=== PATIENT | female | born 1985 | race Caucasian/White ===

== ENCOUNTER 2019-01-18 17:52 | Emergency (ER) | payer OTHER ==
[~2019-01-18] VITALS: Ht 162.6 cm; Wt 99.8 kg
[2019-01-18] MEDS ORDERED: KETOROLAC 60 MG/2 ML VIAL IM STA (18:34)
[2019-01-18] MEDS ORDERED: IBUP-1780 PO (18:40)
[2019-01-18] MEDS ORDERED: ACHD5005 PO (18:40)
[2019-01-18] MEDS ORDERED: CLIN300C11 PO (18:40)
--- NOTE | 2019-01-18 18:40 | ED EENT ---
History of Present Illness General Chief Complaint: Dental Problems/Pain Stated Complaint: JAW PAIN Nursing Triage Note: PT HAD A TOOTH PULLED 3 DAYS AGO AND STARTED ON CLINDAMYCIN. SINCE THEN HAS DEVELOPED A KNOT WITH PRESSURE AND JAW PAIN AROUND THE EXTRACTION SITE. SHE REPORTS TAKING 800 MG OF IBUPROFEN AT 1200 AND 500 MG OF TYLENOL AT NOON A WELL. Source: patient History of Present Illness Date Seen by Provider: Jan 18, 2019 Time Seen by Provider: 18:16 Initial Comments 33-year-old female presenting with complaints of pain and swelling to her right upper mouth and face since having tooth pulled on Friday. She states that she has been taking clindamycin since the tooth was pulled but it was abscess was pulled. She is concerned that she may need more antibiotics or something more for pain. She has slept all day today other than when she got up to take a dose of ibuprofen and Tylenol for pain. She feels that the pain is not improving. She was complaining of draining from the abscessed area of the tooth. She also felt like she was still having some swelling to her face. She states that she has had a temp around 101 Fahrenheit at home. She is afebrile here. 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 Allergies and Home Medications Allergies Coded Allergies: penicillin G (Verified Allergy, Mild, Rash, 01/18/19) cefaclor (Verified Allergy, Unknown, 01/18/19) Home Medications Clindamycin HCl 300 Mg Capsule, 300 MG PO TID Prescribed by: HUAN MARQUES on 01/18/191839 Hydrocodone Bit/Acetaminophen 1 Tab Tab, 1 EACH PO Q6H PRN for PAIN-MODERATE Prescribed by: HUAN MARQUES on 01/18/191839 Ibuprofen 800 Mg Tablet, 800 MG PO Q8H PRN for PAIN Prescribed by: HUAN MARQUES on 01/18/191839 Patient Home Medication List Home Medication List Reviewed: Yes Review of Systems Review of Systems Constitutional: chills, fever (up to 101 F at home), malaise Eyes: Denies Blurred Vision, Denies Photophobia Ears: No Symptoms Reported Nose: no symptoms reported Mouth: see HPI Throat: no symptoms reported Respiratory: no symptoms reported Cardiovascular: no symptoms reported Gastrointestinal: no symptoms reported Musculoskeletal: no symptoms reported Skin: no symptoms reported Neurological: No Symptoms Reported Hematologic/Lymphatic: No Symptoms Reported Past Izqsbdf-Nmvinm-Vxgtwx Hx Past Med/Social Hx: Reviewed Nursing Past Med/Soc Hx Patient Social History Alcohol Use: Denies Use Recreational Drug Use: No Smoking Status: Never a Smoker 2nd Hand Smoke Exposure: No Recent Foreign Travel: No Contact w/Someone Who Travel: No Recent Infectious Disease Expo: No Recent Hopitalizations: No Physical Abuse: No Sexual Abuse: No Mistreated: No Fear: No Seasonal Allergies Seasonal Allergies: No Past Medical History Surgeries: Yes (WISDOM TEETH, BACK SURGERY X 3, LEFT FOOT, 1 VAG ) Respiratory: Yes Asthma Cardiac: No Neurological: No : No Genitourinary: No Gastrointestinal: No Musculoskeletal: No Endocrine: No HEENT: No Cancer: No Psychosocial: Yes Anxiety Integumentary: No Physical Exam Vital Signs Vital Signs - First Documented 01/18/19 17:58 Temp 98.1 Pulse 79 Resp 20 B/P (MAP) 131/81 (98) O2 Delivery Room Air Height, Weight, BMI Height: 5'4.00" Weight: 220lbs. oz. 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 After that have her take a few hydrocodone for severe pain. Make sure that she is taking 300 mg 3 times a day of the clindamycin to treat for infection. If she is not improving by Friday and return or seek medical care for further evaluation. Departure Impression Primary Impression: Pain, dental Additional Impression: Dental abscess Disposition: HOME, SELF-CARE Condition: Stable Departure-Patient Inst. Decision time for Depature: 18:36 Referrals: NO,LOCAL PHYSICIAN (PCP) Primary Care Physician Patient Instructions: Tooth Decay, Adult (DC), Dental Pain (DC), Tooth Abscess (DC) Add. Discharge Instructions: Make sure you are taking Clindamycin 300 mg 3 times a day for the infection. Use Ibuprofen 800 mg every 8 hours for pain and inflammation. Take with food to limit irritation to stomach For severe pain use Hydrocodone. If your symptoms are not improving by Friday then you may need IV antibiotics so you should get checked again if not improving by Friday. Elevate your head when sleeping to help with swelling and pain All discharge instructions reviewed with patient and/or family. Voiced understa nding. Scripts Clindamycin HCl (Clindamycin HCl) 300 Mg Capsule 300 MG PO TID for 10 Days, #30 CAP 0 Refills Prov: HUAN MARQUES MD 01/18/19 Ibuprofen (Ibuprofen) 800 Mg Tablet 800 MG PO Q8H PRN for PAIN, #30 TAB 0 Refills Prov: HUAN MARQUES MD 01/18/19 Hydrocodone Bit/Acetaminophen (Hydrocodone/Acetaminophen 5/325mg Tablet) 1 Tab Tab 1 EACH PO Q6H PRN for PAIN-MODERATE MDD 10 for 3 Days, #12 TAB 0 Refills Prov: HUAN MARQUES MD 01/18/19 HUAN MARQUES MD Jan 18, 2019 18:40
[2019-01-18 18:42] VITALS: BP 131/81
== END 2019-01-18 18:43 | disposition home or self-care (01) ==
LOC: EDUNIT# 17:52 → ER FS 17:53
DX: K04.7 Periapical abscess without sinus (principal); J45.909 Unspecified asthma, uncomplicated; F41.9 Anxiety disorder, unspecified; Z88.0 Allergy status to penicillin; Z88.1 Allergy status to other antibiotic agents
CPT/HCPCS: 99284

== ENCOUNTER → 2020-02-10 | Outpatient (CLI) | payer MEDICARE, MEDICAID ==
[~2020-02-10] MED LIST: ACHD5005 PO; CLIN300C11 PO; IBUP-1780 PO
--- NOTE | 2020-02-10 14:52 | Diagnostic Imaging Report ---
PROCEDURE: MRI lumbar spine. TECHNIQUE: Multiplanar, multisequence MRI of the lumbar spine was performed without contrast. INDICATION: Chronic low back pain with multiple prior lumbar spine surgeries. COMPARISON: No prior studies are available for comparison. FINDINGS: Curvature and alignment of the lumbar spine is normal. There are postop changes of posterior instrumented fusion with vertical stabilization rods and pedicle screws transfixing the L5-S1 level. This does create moderate artifact. Vertebral body heights are maintained. Marrow signal intensity is unremarkable. No geographic marrow lesion or compression fracture is identified. There is disc desiccation at the L5-S1 level as well. The conus is unremarkable at the L1 level. T12-L1: The central canal and neural foramina are widely patent. L1-L2: The central canal and neural foramina are widely patent. L2-L3: Hypertrophic facet changes and ligamentous thickening is noted. Central canal remains patent. Neural foramina are widely patent. L3-L4: Hypertrophic facet changes and ligamentous thickening is noted. Slight trefoil configuration of the thecal sac is noted, but central canal remains patent. Neural foramina are patent. L4-L5: Hypertrophic facet changes and ligamentous thickening is noted. There is mild trefoil narrowing of the canal. Broad-based disc/osteophyte complex flattens the ventral thecal sac. This also results in moderate lateral recess narrowing. There is also eabk-sw-rqfvvwug left and mild right neuroforaminal narrowing. L5-S1: Postsurgical changes are noted. Central canal remains widely patent. The right-sided neural foramen is widely patent. There is some minimal narrowing of the left-sided neural foramen. Possibility of narrowing by epidural fibrotic tissue cannot be entirely excluded. There are no fluid collections detected. Paraspinous tissues are unremarkable. IMPRESSION: Postsurgical changes of posterior instrumented fusion at L5-S1. There may be some mild epidural fibrotic tissue mildly narrowing the left neural foramen at this level. There is also generalized lumbar facet arthropathy and degenerative changes described level by level above. Dictated by: Dictated on workstation # [id number]
== END ==
LOC: RAD 13:15
PROVIDERS: ATTEND Emergency Medicine
DX: M48.07 Spinal stenosis, lumbosacral region (principal); M47.816 Spondylosis without myelopathy or radiculopathy, lumbar region; M51.37 Other intervertebral disc degeneration, lumbosacral region; N39.42 Incontinence without sensory awareness; Z98.1 Arthrodesis status
CPT/HCPCS: 72148

== ENCOUNTER 2020-05-01 17:27 | Emergency (ER) | payer MEDICARE, MEDICAID ==
[~2020-05-01] VITALS: Ht 162 cm; Wt 105.0 kg
[~2020-05-01 17:27] MED LIST changes: -CLIN300C11 PO; +CLIN300C12 PO
[2020-05-01 17:30] VITALS: BP 127/90
--- NOTE | 2020-05-01 18:12 | ED General ---
General Chief Complaint: Back Problems Stated Complaint: BACK PAIN Nursing Triage Note: CHRONIC BACK PAIN. REPORTS HURTS MORE SO THE LAST 2 DAYS. HX OF MULTIPLE BACK SX AND IS ON SUBOXONE. PT ALSO REPORTS HER HANDS HURT BILATERALLY. Nursing Sepsis Screen: No Definite Risk Exam Limitations: No Limitations History of Present Illness Date Seen by Provider: May 01, 2020 Time Seen by Provider: 17:30 Initial Comments Patient is a 34-year-old female is here chronic back pain and neuropathy of upper extremities see presents with poorly controlled back pain and worsening her the of hands. She reports tingling and pain in her hands which is worse with repetitive arm use and use. Patient has been evaluated by her PCP for this and is currently on Suboxone. She has an appointment with a neurosurgeon in 2 months. She states her pain is poorly controlled. Her mother contacted EMS prior to notifying her PCP. Denies neck pain, no chest pain palpitations. No shortness of breath. No other acute symptoms or complaints. Timing/Duration: 1-3 Hours Severity: Moderate Allergies and Home Medications Allergies Coded Allergies: penicillin G (Verified Allergy, Mild, Rash, 01/18/19) cefaclor (Verified Allergy, Unknown, 01/18/19) Home Medications Clindamycin HCl 300 Mg Capsule, 300 MG PO TID Prescribed by: HUAN MARQUES on 01/18/191839 Hydrocodone Bit/Acetaminophen 1 Tab Tab, 1 EACH PO Q6H PRN for PAIN-MODERATE Prescribed by: HUAN MARQUES on 01/18/191839 Ibuprofen 800 Mg Tablet, 800 MG PO Q8H PRN for PAIN Prescribed by: HUAN MARQUES on 01/18/191839 Patient Home Medication List Home Medication List Reviewed: Yes Review of Systems Review of Systems Constitutional: see HPI EENTM: see HPI Respiratory: see HPI Cardiovascular: see HPI Genitourinary: see HPI Musculoskeletal: see HPI Skin: see HPI Psychiatric/Neurological: See HPI Hematologic/Lymphatic: See HPI Immunological/Allergic: see HPI All Other Systems Reviewed Negative Unless Noted: Yes Past Uvhlbbv-Tqyfnd-Nckqhe Hx Past Med/Social Hx: Reviewed Nursing Past Med/Soc Hx Patient Social History Alcohol Use: Denies Use Recreational Drug Use: No (PT IS ON SUBOXONE) Smoking Status: Never a Smoker 2nd Hand Smoke Exposure: No Recent Foreign Travel: No Contact w/Someone Who Travel: No Recent Infectious Disease Expo: No Recent Hopitalizations: No Physical Abuse: No Sexual Abuse: No Mistreated: No Fear: No Seasonal Allergies Seasonal Allergies: No Past Medical History Surgeries: Yes (WISDOM TEETH, BACK SURGERY X 3, LEFT FOOT, 1 VAG ) Respiratory: Yes Asthma Cardiac: No Neurological: No Genitourinary: No Gastrointestinal: No Musculoskeletal: No Endocrine: No HEENT: No Cancer: No Psychosocial: Yes Anxiety Integumentary: No Physical Exam Vital Signs Vital Signs - First Documented 05/01/20 17:30 Temp 36.7 Pulse 109 Resp 18 B/P (MAP) 127/90 (102) Pulse Ox 100 O2 Delivery Room Air Capillary Refill : Less Than 3 Seconds Height, Weight, BMI Height: 5'4.00" Weight: 220lbs. oz. 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 Patient currently being managed by oil painter. Will add muscle accident and said with instructions to follow-up with oil painter and neurosurgeon as scheduled. No other treatments are imaging indicated at this time. Impression Primary Impression: Back pain Disposition: 01 HOME, SELF-CARE Condition: Stable Departure-Patient Inst. Decision time for Depature: 18:40 Referrals: NO,LOCAL PHYSICIAN (PCP) Primary Care Physician Patient Instructions: Chronic Pain CINDY HOFFMAN DO May 01, 2020 18:12
[2020-05-01] MEDS ORDERED: ACETAMINOPHEN 500 MG TAB (TYLENOL) PO ONE (18:15)
[2020-05-01] MEDS ORDERED: DIAZEPAM 5 MG (VALIUM) TABLET PO ONE (18:15)
== END 2020-05-01 18:50 | disposition home or self-care (01) ==
LOC: EDUNIT# 17:27 → ER FS 17:28
DX: G89.29 Other chronic pain (principal); M54.9 Dorsalgia, unspecified; F41.9 Anxiety disorder, unspecified; Z88.0 Allergy status to penicillin; Z88.1 Allergy status to other antibiotic agents
CPT/HCPCS: 99283

== ENCOUNTER 2021-05-20 18:03 | Emergency (ER) | payer MEDICAID, MEDICARE, OTHER ==
[~2021-05-20] VITALS: Ht 162.5 cm; Wt 100.2 kg
[~2021-05-20 18:03] MED LIST changes: +CLIN-144 PO; -CLIN300C12 PO
--- OUTSIDE RECORDS SUMMARY | 2021-05-20 18:07 | XMS REPORT | Clinical Summary ---
Author Author [facility] Organization [facility] Address Unknown Phone Unavailable Support Name Relationship Address Phone Sandie Velazquez [address] [place] [address] Care Team Providers Care Supervisor Dog License Officer Name Role Phone Self, Bryn LOPEZ PCP Source Comments Some departments are not documenting in the electronic medical record. If you d o not see the information that you expected, contact Release of Information in [facility] Information Management department at [phone] for further assistan ce in locating additional records.[facility] Allergies Comments Active Allergy Reactions Severity Noted Date Cefaclor UNKNOWN Low 10/08/2017 Penicillins UNKNOWN Low 10/08/2017 Medications End Date Status Medication Sig Dispensed Refills Start Date Active HYDROcodone/acetaminophen Take 1 tablet 0 (NORCO) 7.5/325 mg tablet by mouth every 6 hours as needed for Pain Active ALPRAZolam (XANAX) 0.5 mg Take 0.5 mg 0 tablet by mouth at bedtime as needed for Anxiety. Active pregabalin (LYRICA) 25 mg Take 1 60 capsule 5 capsule capsule by 8 mouth twice daily. Active Problems Not on file Family History Relation Name Status Comments Mother Alive Social History Date Tobacco Use Types Packs/Day Years Used Never Smoker Smokeless Tobacco: Never Used Comments Alcohol Use Standard Drinks/Week No 0 (1 standard drink = 0.6 o z pure alcohol) Sex Assigned at Date Recorded Not on file Last Filed Vital Signs Reading Time Taken Comments Vital Sign 114/82 10/08/2017 8:02 AM CDT Blood Pressure 100 10/08/2017 8:02 AM CDT Pulse - - Temperature - - Respiratory Rate 100% 10/08/2017 8:02 AM CDT Oxygen Saturation - - Inhaled Oxygen Concentration 90.7 kg (200 lb) 10/08/2017 8:02 AM CDT Weight 162.6 cm (5' 4") 10/08/2017 8:02 AM CDT Height 34.33 10/08/2017 8:02 AM CDT Body Mass Index Plan of Treatment Health Maintenance Due Date Last Done Comments MEDICARE ANNUAL WELLNESS 1984 VISIT HIV SCREENING 08/30/1999 DTAP/TDAP VACCINES (1 - 2002 Tdap) HEPATITIS C SCREENING 2002 PHYSICAL (COMPREHENSIVE) 2002 EXAM CERVICAL CANCER SCREENING 2005 INFLUENZA VACCINE 12/24/2020 Results Not on filefrom Last 3 Months Insurance Type Payer Benefit Subscriber ID Effective Phone Address Plan / Dates Group Medicare MEDICARE MEDICARE [id number] 2014-P [phone] [address] [place] [address] Advance Directives Patient Senior Php Web Developer Explanation Type Date Recorded Advance 11/11/2017 9:34 AM Directive/DPOA Care Teams Start Date End Date Supervisor Dog License Officer Relationship Specialty 10/08/17 SelfBryn MD PCP - General Family Medicine
--- OUTSIDE RECORDS SUMMARY | 2021-05-20 18:07 | XMS REPORT | Clinical Summary ---
Author Author [facility] Organization [facility] Address Unknown Phone Unavailable Care Team Providers Care Commercial Finance Analyst Name Role Phone МарияLizz SIMONE PCP Allergies Comments Active Allergy Reactions Severity Noted Date Cefaclor 06/22/2018 Gabapentin 06/22/2018 Naproxen 06/22/2018 Penicillins 06/22/2018 Tramadol 06/22/2018 Medications End Date Status Medication Sig Dispensed Refills Start Date Active HYDROcodone-acetaminophen Take 1 tablet 0 (NORCO) 7.5-325 mg per by mouth tablet every 6 (six) hours as needed for pain. Active diazePAM (VALIUM) 5 MG Take 5 mg by 0 tablet mouth every 6 (six) hours as needed for anxiety. Active Problems Not on file Social History Date Tobacco Use Types Packs/Day Years Used Never Smoker Smokeless Tobacco: Never Used Comments Alcohol Use Standard Drinks/Week No 0 (1 standard drink = 0.6 o z pure alcohol) Sex Assigned at Date Recorded Not on file Last Filed Vital Signs Reading Time Taken Comments Vital Sign 120/68 06/22/2018 2:31 PM CHILD WELFARE CONSULTANT Blood Pressure 74 06/22/2018 2:31 PM CHILD WELFARE CONSULTANT Pulse 37 C (98.6 F) 06/22/2018 11:37 AM CHILD WELFARE CONSULTANT Temperature 16 06/22/2018 2:31 PM CHILD WELFARE CONSULTANT Respiratory Rate 99% 06/22/2018 2:31 PM CHILD WELFARE CONSULTANT Oxygen Saturation - - Inhaled Oxygen Concentration 87.5 kg (193 lb) 06/22/2018 11:37 AM CHILD WELFARE CONSULTANT Weight 162.6 cm (5' 4") 06/22/2018 11:37 AM CHILD WELFARE CONSULTANT Height 33.13 06/22/2018 11:37 AM CHILD WELFARE CONSULTANT Body Mass Index Plan of Treatment Health Maintenance Due Date Last Done Comments Td/Tdap# 1984 COVID-19 Vaccine (1) 1989 Cervical Cancer Screening 2005 via Pap Smear Influenza Vaccine (#1) 2021 Pneumococcal Vaccine: Aged Out No longer eligib le based on patient's age to Pediatrics (0 to 5 Years) complete this topic and At-Risk Patients (6 to 64 Years) Results Not on filefrom Last 3 Months Advance Directives For more information, please contact: [phone] Patient Qa Tech Explanation Type Date Recorded Health Care Directive Care Teams Start Date End Date Commercial Finance Analyst Relationship Specialty 06/22/18 Lizz Hsieh APRN PCP - General [id number] [place] [address]
[2021-05-20] MEDS ORDERED: predniSONE 20 MG TAB PO ONE (19:00)
--- NOTE | 2021-05-20 19:04 | ED Cough/URI ---
General Chief Complaint: Respiratory Problems Stated Complaint: DIFFICULTY BREATHING,COUGH, COVID TEST NEGATIVE Nursing Triage Note: Patient presents to the ED with c/o shorntess of breath and chest discomfort. She states she was diagnosed with pneuomnia 05/17 and started on an antibiotic. She also had a negative COVID test at that time. She states she feels like she can't catch her breath. Source: patient Exam Limitations: no limitations History of Present Illness Date Seen by Provider: May 20, 2021 Time Seen by Provider: 18:00 Initial Comments Patient is a 35-year-old male recently diagnosed with asthmatic pneumonia currently on cefdinir antibiotic for the past 3 days who presents with shortness of breath. Patient states she was also tested for Covid and was negative. She reports occasional weak sitting and has used her albuterol inhaler 3-4 times daily. She currently denies fever. She does report substernal chest pain and purulent sputum production with coughing. No fevers chills nausea vomiting or sweats. Denies dizziness lightheadedness, nausea vomiting or sweats. No other acute symptoms or complaints. Timing/Duration: week Severity/Quality: productive cough Prior Episodes/Possible Cause: other Modifying Factors: Improves With Other Associated Symptoms: shortness of breath, wheezing Allergies and Home Medications Allergies Coded Allergies: penicillin G (Verified Allergy, Mild, Rash, 01/18/19) cefaclor (Verified Allergy, Unknown, 01/18/19) Patient Home Medication List Home Medication List Reviewed: Yes Clindamycin HCl (Clindamycin HCl) 300 Mg Capsule, 300 MG PO TID Prescribed by: HUAN MARQUES on 01/18/191839 Hydrocodone Bit/Acetaminophen (Lortab 5 Mg Tablet) 1 Tab Tab, 1 EACH PO Q6H PRN for PAIN-MODERATE Prescribed by: HUAN MARQUES on 01/18/191839 Ibuprofen (Ibuprofen) 800 Mg Tablet, 800 MG PO Q8H PRN for PAIN Prescribed by: HUAN MARQUES on 01/18/191839 Review of Systems Review of Systems Constitutional: see HPI EENTM: see HPI Respiratory: see HPI Cardiovascular: see HPI Gastrointestinal: see HPI Genitourinary: see HPI Musculoskeletal: see HPI Skin: see HPI Psychiatric/Neurological: See HPI Hematologic/Lymphatic: See HPI Immunological/Allergic: see HPI All Other Systems Reviewed Negative Unless Noted: Yes Past Hawqocy-Qoprhi-Ogbsmk Hx Patient Social History Tobacco Use?: Yes Use of E-Cig and/or Vaping dev: No Substance use?: No Alcohol Use?: No Pt feels they are or have been: No Immunizations Up To Date First/Initial COVID19 Vaccinat: 2020 Second COVID19 Vaccination Venu: 2020 COVID19 Vaccine Can Maker: Gradeable Seasonal Allergies Seasonal Allergies: No Past Medical History Surgery/Hospitalization HX: Chronic Back Pain; Anxiety; GERD; Asthma; Depression; Asthma. Back surgery x3; left foot surgery Surgeries: Yes (WISDOM TEETH, BACK SURGERY X 3, LEFT FOOT, 1 VAG ) Respiratory: Yes Asthma Cardiac: No Neurological: No Genitourinary: No Gastrointestinal: No Musculoskeletal: No Endocrine: No HEENT: No Cancer: No Psychosocial: Yes Anxiety Integumentary: No Physical Exam Vital Signs - First Documented 05/20/21 18:08 Temp 36.0 Pulse 103 Resp 18 B/P (MAP) 138/97 (111) Pulse Ox 98 O2 Delivery Room Air Capillary Refill : Less Than 3 Seconds Height: 5'4.00" Weight: 220lbs. oz. 99.851722nt; 37.00 BMI Method:Stated General Appearance: WD/WN, no apparent distress, other (Anxious) Eyes: Bilateral Eye Normal Inspection, Bilateral Eye PERRL HEENT: PERRL/EOMI, TMs normal, pharynx normal Neck: non-tender, full range of motion, supple Respiratory: decreased breath sounds, wheezing Cardiovascular: normal peripheral pulses, regular rate, rhythm Gastrointestinal: non tender, soft Extremities: non-tender Neurologic/Psychiatric: tax consultant II-XII nml as tested, alert, oriented x 3 Focused Exam Sepsis Stage: Ruled Out Progress/Results/Core Measures Suspected Sepsis SIRS Temperature: Pulse: 103 Respiratory Rate: 18 Blood Pressure 138 /97 Mean: 111 Results/Orders My Orders Orders - CINDY HOFFMAN DO Prednisone Tablet (Deltasone Tablet) (05/20/21 19:00) Vital Signs/I&O 05/20/21 18:08 Temp 36.0 Pulse 103 Resp 18 B/P (MAP) 138/97 (111) Pulse Ox 98 O2 Delivery Room Air Capillary Refill : Less Than 3 Seconds Blood Pressure Mean: 111 Departure Communication (Admissions) Exam consistent with pneumonia with mild persistent asthma exacerbation. Steroids given. We will continue supportive and therapeutic treatment with PCP follow-up as scheduled. Return cautions reviewed. Patient verbalizes understanding and agreement discharge instructions prior to departure. Impression Primary Impression: Asthma, persistent Additional Impression: Pneumonia Disposition: 01 HOME, SELF-CARE Condition: Stable Departure-Patient Inst. Decision time for Depature: 19:02 Referrals: JARET MAYNARD DO (PCP/Family) Primary Care Physician Patient Instructions: Asthma, Adult ED, Pneumonia, Adult ED Add. Discharge Instructions: Please fill newly prescribed medications and take as directed. May continue to use your albuterol inhaler every 2-4 hours as needed. Follow-up with your PCP in 3 to 5 days for reevaluation. Return to the ED if new or worsening symptoms. All discharge instructions reviewed with patient and/or family. Voiced understanding. Scripts Albuterol Sulfate (Proventil Hfa) 6.7 Gm Hfa.aer.ad 6.7 GM INH Q4H, #1 GM Prov: CINDY HOFFMAN DO 05/20/21 Guaifenesin (Mucinex) 1,200 Mg Tab.er.12h 1200 MG PO BID, #30 TAB Prov: CINDY HOFFMAN DO 05/20/21 Prednisone (Prednisone) 20 Mg Tab 40 MG PO DAILY, #6 TAB 0 Refills Prov: CINDY HOFFMAN DO 05/20/21 CINDY HOFFMAN DO May 20, 2021 19:04
[2021-05-20] MEDS ORDERED: GUAI120013 PO (19:05)
[2021-05-20] MEDS ORDERED: ALBU6.7H8 INH (19:05)
[2021-05-20] MEDS ORDERED: PRD20T PO (19:05)
[2021-05-20 19:16] VITALS: BP 138/97
== END 2021-05-20 19:14 | disposition home or self-care (01) ==
LOC: EDUNIT# 18:03 → ER FS 18:05
DX: J18.9 Pneumonia, unspecified organism (principal); J45.30 Mild persistent asthma, uncomplicated; Z88.0 Allergy status to penicillin; Z79.2 Long term (current) use of antibiotics
CPT/HCPCS: 99283

== ENCOUNTER 2021-07-07 08:11 | Emergency (ER) | payer OTHER ==
[~2021-07-07] VITALS: Ht 162 cm; Wt 89.0 kg
[~2021-07-07 08:11] MED LIST changes: +ALBU6.7H8 INH; +GUAI120013 PO; +PRD20T PO
[2021-07-07] MEDS ORDERED: KETOROLAC 30 MG/ML VIAL IVP STA (08:23)
[2021-07-07] MEDS ORDERED: NS IV 1000 ML 1,000 ML IV STA ×2 (08:23→09:21)
[2021-07-07] MEDS ORDERED: ORPHENADRINE 60 MG/2 ML (NORFLEX) AMP (ED ONLY) IM STA (08:23)
[2021-07-07] MEDS ORDERED: LORazepam INJ 2 MG/ML (ATIVAN) VIAL IVP STA (08:27)
[2021-07-07] MEDS ORDERED: fentaNYL INJ 100 MCG/2 ML AMP IVP STA ×2 (08:27→10:25)
[2021-07-07] MEDS ORDERED: NS IV 1000 ML 1,000 ML IV SCH (08:30)
[2021-07-07] MEDS ORDERED: ACETAMINOPHEN 325 MG TABLET PO ONE (08:30)
[2021-07-07 08:36] LABS: HEMATOCRIT 32 % (35-52); HEMOGLOBIN 10.4 g/dL (11.5-16.0); MEAN CORPUSCULAR HEMOGLOBIN 26 pg (25-34); MEAN CORPUSCULAR HGB CONC 32 g/dL (32-36); MEAN CORPUSCULAR VOLUME 81 fL (80-99); WHITE BLOOD COUNT 10.8 10^3/uL (4.3-11.0)
[2021-07-07 08:37] LABS: BASOPHILS % (AUTO) 0 % (0-10); EOSINOPHILS % (AUTO) 0 % (0-10); LYMPHOCYTES # (AUTO) 0.9 X 10^3 (1.0-4.0); LYMPHOCYTES % (AUTO) 8 % (12-44); MEAN PLATELET VOLUME 10.5 fL (9.0-12.2); MONOCYTES # (AUTO) 0.8 X 10^3 (0.0-1.0); MONOCYTES % (AUTO) 7 % (0-12); NEUTROPHILS # (AUTO) 9.1 X 10^3 (1.8-7.8); NEUTROPHILS % (AUTO) 84 % (42-75); PLATELET COUNT 217 10^3/uL (130-400)
--- NOTE | 2021-07-07 08:43 | ED General ---
General Chief Complaint: Back Problems Stated Complaint: BACK PAIN Nursing Triage Note: Patient reports that she was moving furniture yesterday and today she is having severe pain. She complains of bilateral shoulder pain, back pain, bilateral wrist pain, and right knee pain. She reports that she did take tyelnol and ibuprofen for her pain. She was in so much pain this morning that she could not get out of her recliner and called EMS for transport to the ER for evaluation. Source of Information: Patient, EMS, Old Records Exam Limitations: Other (pain) History of Present Illness Date Seen by Provider: Jul 07, 2021 Time Seen by Provider: 08:11 Initial Comments 35-year-old female presenting by EMS from home with complaints of generalized pain since moving furniture and cleaning her house. She states that on and Friday she had been moving furniture and cleaning and she has gradually gotten increasing pain. She has chronic pain in her back and wrists and shoulders but that has been worse since moving the furniture. She has pain more on the right side than her right arm and right knee and ankle. She was spending most of the day in bed yesterday and overnight. She has been mainly just trying to drink fluids because she felt like she was getting dehydrated. She was having so much pain that she had difficulty getting to the bathroom and pulling her pants down to use the bathroom. She denies any pain or burning with urination. She denies any increased cough or shortness of breath. She states that she had COVID approximately a month ago. She denies having any abdominal pain, nausea, vomiting, diarrhea, constipation, sore throat, nasal congestion. She has a blister on her right palm by her thumb from getting her hand pinched in a drawer. She also has a red area that is warm to her right ankle. She is un aware of any bites or injuries to the area. She denies pain with urination. She has not notice fever or chills. She felt increased fatigue and was feeling like she could not get up and around to do anything. Today she could not get up out of her recliner at all so EMS was activated to transport her to ED. She has been taking Acetaminophen and Ibuprofen for pain. She did take her last Suboxone last night for pain. She was following with Dr. Almonte for chronic pain issues and medical issues but she states she is not continuing to do that. She has been waiting on [facility] to get her set up with new doctor to prescribe her chronic pain medicines and trying to get to spine surgeon to see about surgery for her back and chronic issues with her spine. She denies any injury, fall or trauma to have triggered her pain and symptoms in the last 2 days. She states the only thing she did was move furniture and clean her house Timing/Duration: 1-2 Days Severity: Severe Modifying Factors: worse with Movement Associated Systoms: Chest Pain (feels like she has a rib out of place per patient); No Cough, No Diaphoresis, No Fever/Chills; Headaches, Loss of Appetite, Malaise; No Nausea/Vomiting, No Rash, No Seizure, No Shortness of Air, No Syncope; Weakness (general) Allergies and Home Medications Allergies Coded Allergies: penicillin G (Verified Allergy, Mild, Rash, 01/18/19) cefaclor (Verified Allergy, Unknown, 01/18/19) Patient Home Medication List Home Medication List Reviewed: Yes Albuterol Sulfate (Proventil Hfa) 6.7 Gm Hfa.aer.ad, 6.7 GM INH Q4H Prescribed by: CINDY HOFFMAN on 05/20/21 190 Clindamycin HCl (Clindamycin HCl) 300 Mg Capsule, 300 MG PO TID Prescribed by: HUAN MARQUES on 07/07/21 1053 Guaifenesin (Mucinex) 1,200 Mg Tab.er.12h, 1,200 MG PO BID Prescribed by: CINDY HOFFMAN on 05/20/21 1905 Hydrocodone Bit/Acetaminophen (Lortab 5 Mg Tablet) 1 Tab Tab, 1 EACH PO Q6H PRN for PAIN-MODERATE Prescribed by: HUAN MARQUES on 01/18/19 1840 Hydrocodone/Acetaminophen (Hydrocodone-Acetamin 5-325 mg) 1 Each Tablet, 1 TAB PO Q6H PRN for PAIN-SEVERE (8-10) Prescribed by: HUAN MARQUES on 07/07/21 1054 Ibuprofen (Ibuprofen) 800 Mg Tablet, 800 MG PO Q8H PRN for PAIN Prescribed by: HUAN MARQUES on 01/18/19 1840 Ibuprofen (Ibuprofen) 800 Mg Tablet, 800 MG PO Q8H PRN for PAIN Prescribed by: HUAN MARQUES on 07/07/21 1053 Methocarbamol (Methocarbamol) 750 Mg Tablet, 750 MG PO Q6H PRN for MUSCLE SPASMS Prescribed by: HUAN MARQUES on 07/07/21 1114 Prednisone (Prednisone) 20 Mg Tab, 40 MG PO DAILY Prescribed by: CINDY HOFFMAN on 05/20/21 1905 Review of Systems Review of Systems Constitutional: see HPI EENTM: no symptoms reported; No ear pain, No epistaxis, No nose congestion, No throat pain Respiratory: No cough, No short of breath, No stridor, No wheezing Cardiovascular: see HPI; No edema, No syncope, No vascular heart diseas Gastrointestinal: see HPI Genitourinary: No discharge, No dysuria, No frequency, No hematuria : No LMP: Jul 06, 2021 Musculoskeletal: see HPI, joint pain, muscle pain, muscle stiffness, other (generalized joint and muscle pains) Skin: change in color (redness to right ankle, blister to right palm) Psychiatric/Neurological: Anxiety, Headache Hematologic/Lymphatic: Denies Blood Clots Past Velqkas-Aqcvpa-Iplvpc Hx Patient Social History Tobacco Use?: No Use of E-Cig and/or Vaping dev: No Substance use?: No Alcohol Use?: No Pt feels they are or have been: No Immunizations Up To Date First/Initial COVID19 Vaccinat: 2020 Second COVID19 Vaccination Venu: 2020 Seasonal Allergies Seasonal Allergies: No Past Medical History Surgery/Hospitalization HX: Chronic Back Pain; Anxiety; GERD; Asthma; Depression; Asthma. Back surgery x3; left foot surgery Surgeries: Yes (WISDOM TEETH, BACK SURGERY X 3, LEFT FOOT, 1 VAG ) Respiratory: Yes Asthma Cardiac: No Neurological: No Genitourinary: No Gastrointestinal: No Musculoskeletal: No Endocrine: No HEENT: No Cancer: No Psychosocial: Yes Anxiety Integumentary: No Physical Exam Vital Signs Vital Signs - First Documented 07/07/21 08:16 Temp 37.3 Pulse 109 Resp 18 B/P (MAP) 142/81 (101) Pulse Ox 100 O2 Delivery Room Air Capillary Refill : Height, Weight, BMI Height: 5'4.00" Weight: 220lbs. oz. 99.562584ki; 33.00 BMI Method:Stated General Appearance: WD/WN, Chronically ill, Mild Distress, Obese HEENT: PERRL/EOMI; No Moist Mucous Membranes (slightly dry mucous membranes) Neck: Full Range of Motion, Normal Inspection, Non Tender, Supple Respiratory: Lungs Clear, Normal Breath Sounds, No Accessory Muscle Use, No Respiratory Distress, Other (tender chest wall) Cardiovascular: Normal Peripheral Pulses, Tachycardia Gastrointestinal: Normal Bowel Sounds, No Pulsatile Mass, Non Tender, Soft Rectal: Deferred Back: No CVA Tenderness Extremity: Normal Capillary Refill, No Pedal Edema, Inflammation (redness with increased warmth to right ankle, tender to palpation. complains of pain to palpation anywhere on arms or legs), Other (redness and swelling to bilateral hands with 6 mm ulceration to palmar surface of right hand at base of thumb.) Neurologic/Psychiatric: Alert, Oriented x3 Skin: Warm/Dry, Erythema (right ankle) Focused Exam Lactate Level 07/07/21 08:25: Lactic Acid Level 2.13*H Lactic Acid Level Laboratory Tests Test 07/07/21 08:25 Lactic Acid Level 2.13 MMOL/L (0.50-2.00) *H Progress/Results/Core Measures Suspected Sepsis SIRS Temperature: Pulse: 109 Respiratory Rate: 18 Laboratory Tests 07/07/21 08:25: White Blood Count 10.8 Blood Pressure 142 /81 Mean: 101 07/07/21 08:25: Lactic Acid Level 2.13*H Laboratory Tests 07/07/21 08:25: Creatinine 0.67, INR Comment 1.1, Platelet Count 217, Total Bilirubin 0.5 Results/Orders Lab Results Laboratory Tests Test 07/07/21 08:25 07/07/21 09:45 Range/Units White Blood Count 10.8 4.3-11.0 10^3/uL Red Blood Count 4.02 3.80-5.11 10^6/uL Hemoglobin 10.4 L 11.5-16.0 g/dL Hematocrit 32 L 35-52 % Mean Corpuscular Volume 81 80-99 fL Mean Corpuscular Hemoglobin 26 25-34 pg Mean Corpuscular Hemoglobin Concent 32 32-36 g/dL Red Cell Distribution Width 16.5 H 10.0-14.5 % Platelet Count 217 130-400 10^3/uL Mean Platelet Volume 10.5 9.0-12.2 fL Neutrophils (%) (Auto) 84 H 42-75 % Lymphocytes (%) (Auto) 8 L 12-44 % Monocytes (%) (Auto) 7 0-12 % Eosinophils (%) (Auto) 0 0-10 % Basophils (%) (Auto) 0 0-10 % Neutrophils # (Auto) 9.1 H 1.8-7.8 X 10^3 Lymphocytes # (Auto) 0.9 L 1.0-4.0 X 10^3 Monocytes # (Auto) 0.8 0.0-1.0 X 10^3 Eosinophils # (Auto) 0.0 0.0-0.3 10^3/uL Basophils # (Auto) 0.0 0.0-0.1 10^3/uL Prothrombin Time 14.8 H 12.2-14.7 SEC INR Comment 1.1 0.8-1.4 Activated Partial Thromboplast Time 34 24-35 SEC Sodium Level 133 L 135-145 MMOL/L Potassium Level 3.4 L 3.6-5.0 MMOL/L Chloride Level 101 98-107 MMOL/L Carbon Dioxide Level 20 L 21-32 MMOL/L Anion Gap 12 5-14 MMOL/L Blood Urea Nitrogen 6 L 7-18 MG/DL Creatinine 0.67 0.60-1.30 MG/DL Estimat Glomerular Filtration Rate 116 BUN/Creatinine Ratio 9 Glucose Level 132 H 70-105 MG/DL Lactic Acid Level 2.13 *H 0.50-2.00 MMOL/L Calcium Level 8.9 8.5-10.1 MG/DL Corrected Calcium 9.3 8.5-10.1 MG/DL Magnesium Level 1.4 L 1.6-2.4 MG/DL Total Bilirubin 0.5 0.1-1.0 MG/DL Aspartate Amino Transf (AST/SGOT) 16 5-34 U/L Alanine Aminotransferase (ALT/SGPT) 8 0-55 U/L Alkaline Phosphatase 102 40-136 U/L Myoglobin < 21.0 10.0-92.0 NG/ML Troponin I < 0.30 <0.30 NG/ML C-Reactive Protein 31.20 H <0.50 MG/DL Total Protein 6.4 6.4-8.2 GM/DL Albumin 3.5 3.2-4.5 GM/DL Serum Test, Qualitative NEGATIVE NEGATIVE Urine Color YELLOW Urine Clarity CLEAR Urine pH 6.0 5-9 Urine Specific [place] >=1.030 1.016-1.022 Urine Protein 1+ H NEGATIVE Urine Glucose (UA) 1+ H NEGATIVE Urine Ketones TRACE H NEGATIVE Urine Nitrite NEGATIVE NEGATIVE Urine Bilirubin NEGATIVE NEGATIVE Urine Urobilinogen 0.2 < = 1.0 MG/DL Urine Leukocyte Esterase TRACE H NEGATIVE Urine RBC (Auto) 1+ H NEGATIVE Urine RBC 25-50 H /HPF Urine WBC 50-100 H /HPF Urine Squamous Epithelial Cells 5-10 /HPF Urine Crystals NONE /LPF Urine Bacteria LARGE H /HPF Urine Casts NONE /LPF Urine Mucus LARGE H /LPF Urine Culture Indicated YES Urine Opiates Screen NEGATIVE NEGATIVE Urine Oxycodone Screen NEGATIVE NEGATIVE Urine Methadone Screen NEGATIVE NEGATIVE Urine Propoxyphene Screen NEGATIVE NEGATIVE Urine Barbiturates Screen NEGATIVE NEGATIVE Ur Tricyclic Antidepressants Screen NEGATIVE NEGATIVE Urine Phencyclidine Screen NEGATIVE NEGATIVE Urine Amphetamines Screen POSITIVE H NEGATIVE Urine Methamphetamines Screen POSITIVE H NEGATIVE Urine Benzodiazepines Screen POSITIVE H NEGATIVE Urine Cocaine Screen NEGATIVE NEGATIVE Urine Cannabinoids Screen NEGATIVE NEGATIVE My Orders Orders - HUAN MARQUES MD Monitor-Rhythm Ecg Trace Only (07/07/21:23) Ed Iv/Invasive Line Start (07/07/21 08:23) Cbc With Automated Diff (07/07/21 08:23) Comprehensive Metabolic Panel (07/07/21:23) Crp Fs (07/07/21:23) Troponin I Fs (07/07/21:23) Protime With Inr (07/07/21:23) Partial Thromboplastin Time (07/07/21 08:23) Ekg Tracing (07/07/21 08:23) Ns Iv 1000 Ml (Sodium Chloride 0.9%) (07/07/21 08:30) Acetaminophen Tablet/Caplet (Tylenol T (07/07/21 08:30) Blood Culture (07/07/21 08:23) Ua Culture If Indicated (07/07/21:23) Drug Screen Stat (Urine) (07/07/21:23) Myoglobin Serum (07/07/21:23) Hcg,Qualitative Serum (07/07/21 08:23) Straight Cath For Spec.-Adult (07/07/21 08:23) Lactic Acid Analyzer (07/07/21:23) Magnesium (07/07/21 08:23) Ns Iv 1000 Ml (Sodium Chloride 0.9%) (07/07/21 08:23) Ketorolac Injection (Toradol Injection) (07/07/21 08:23) Orphenadrine Inj (Ed Only) (Norflex Inje (07/07/21 08:23) Fentanyl Inj (Sublimaze Injection) (07/07/21 08:27) Lorazepam Injection (Ativan Injection) (07/07/21 08:27) Ns Iv 1000 Ml (Sodium Chloride 0.9%) (07/07/21 09:21) Vancomycin Injection (Vancomycin Injecti (07/07/21 09:21) Magnesium 1 Gm/100 Ml Ivpb (Magnesium [place] (07/07/21 09:25) Urine Culture (07/07/21 09:45) Fentanyl Inj (Sublimaze Injection) (07/07/21 10:25) Cockup Splint (07/07/21 11:16) Medications Given in ED Current Medications Medications Dose Ordered Sig/Matthew Route Start Time Stop Time Status Last Admin Dose Admin Acetaminophen 650 mg ONCE ONCE PO 07/07/21 08:30 07/07/21 08:31 DC 07/07/21 08:36 650 MG Vital Signs/I&O 07/07/21 07/07/21 08:16 13:35 Temp 37.3 Pulse 109 96 Resp 18 18 B/P (MAP) 142/81 (101) 126/77 Pulse Ox 100 97 O2 Delivery Room Air Room Air Capillary Refill : Blood Pressure Mean: 101 Progress Note #1: Progress Note Check labs and with her having an elevated temperature we will also get blood cultures and lactic acid. Obtain urine and culture that as well. She has an area of possible cellulitis of the right ankle. This could be contributing to her tachycardia and generalized weakness and muscle pain. Give IV fluids 1 L normal saline for hydration, Toradol 30 mg IV for pain, acetaminophen 650 mg p.o. for fever, Ativan 1 mg IV for anxiety and Norflex 60 mg IV for muscle spasms. Fentanyl 50 mcg for pain Differential diagnosis includes sepsis, UTI, pyelonephritis, cellulitis of the right ankle, rhabdomyolysis Progress Note #2: Progress Note CBC stable without acute significant abnormality. Her hemoglobin was slightly low at 10.4. Her chemistry panel has a mild elevation of her lactic acid 2.13 consistent with her dehydration. Her CRP was elevated to go along with possible infection and dehydration. Her troponin was negative. Her renal function was normal. The urinalysis showed signs of possible infection and dehydration with elevated specific gravity and ketones as well as leukocyte esterase, bacteria, white blood cells. Her urine drug screen was positive for amphetamines, methamphetamines, benzodiazepines. She is prescribed alprazolam which would show as the benzodiazepine. She states that she had taken some cough and cold medicine within the last week but adamantly denies any methamphetamine abuse. Sudafed type medications good potentially shows amphetamines or methamphetamines. However methamphetamines would also account for her dehydrati on and areas of redness and swelling to her hands. Progress Note #3: Progress Note Given 1 g of vancomycin IV since she has a history of MRSA. Will discharge on clindamycin for possible UTI/cellulitis. We will also send her with a prescription for a few hydrocodone for severe pain until she can establish with clinic. For her wrist she states that previously she had wrist splints that had helped her so well apply Velcro cock-up wrist splints bilaterally to help with her wrist and hand pain. We will also send a muscle relaxer to try and help with some of her body aches and chronic pain. Stressed importance of pushing fluids and rest. Given the number for Dr. Briones in the [facility] clinics and she states she would like to go back to seeing him and not see Dr. ALMONTE's clinic. ECG Initial ECG Impression Date: Jul 07, 2021 Initial ECG Impression Time: 08:49 Initial ECG Rate: 114 Initial ECG Rhythm: S.Tach Initial ECG Comparisson: No Previous ECG Available Comment Sinus tachycardia with a heart rate of 114 bpm. AL interval [address] elevation but diffuse T wave flattening. QT interval 311 ms with a QTc interval 429 ms. No prior tracing available for comparison. Departure Impression Primary Impression: Fever in adult Additional Impressions: Dehydration Generalized body aches Cellulitis of right ankle Hypomagnesemia Exposure to methamphetamine Disposition: 01 HOME, SELF-CARE Condition: Stable Departure-Patient Inst. Decision time for Depature: 10:46 Referrals: JARET ALMONTE DO (PCP/Family) Primary Care Physician CLAUDIA BRIONES MD Call [facility] clinic at [phone] to get set up with appointment Patient Instructions: Cellulitis (Skin Infection), Adult ED, Dehydration, Adult ED, Fatigue ED, Fever, Adult ED, Low Magnesium Level (DC) Add. Discharge Instructions: Stay well hydrated and take medicine for pain and inflammation. Take the full course of antibiotics to treat for skin infection and possible urine infection. Call [facility] clinic at [phone] to see about getting set up for follow up and establish care with Dr. Briones or [facility] provider All discharge instructions reviewed with patient and/or family. Voiced understanding. Scripts Methocarbamol (Methocarbamol) 750 Mg Tablet 750 MG PO Q6H PRN for MUSCLE SPASMS for 7 Days, #28 TAB 0 Refills Prov: HUAN MARQUES MD 07/07/21 Hydrocodone/Acetaminophen (Hydrocodone-Acetamin 5-325 mg) 1 Each Tablet 1 TAB PO Q6H PRN for PAIN-SEVERE (8-10) for 5 Days, #20 TAB 0 Refills Prov: HUAN MARQUES MD 07/07/21 Ibuprofen (Ibuprofen) 800 Mg Tablet 800 MG PO Q8H PRN for PAIN for 10 Days, #30 TAB 0 Refills Prov: HUAN MARQUES MD 07/07/21 Clindamycin HCl (Clindamycin HCl) 300 Mg Capsule 300 MG PO TID for 10 Days, #30 CAP 0 Refills Prov: HUAN MARQUES MD 07/07/21 HUAN MARQUES MD Jul 07, 2021 08:43
[2021-07-07 09:02] LABS: INR 1.1 (0.8-1.4); PROTHROMBIN TIME PATIENT 14.8 SEC (12.2-14.7)
[2021-07-07 09:06] LABS: ALANINE AMINOTRANSFERASE 8 U/L (0-55); ALBUMIN 3.5 GM/DL (3.2-4.5); ALKALINE PHOSPHATASE 102 U/L (40-136); BILIRUBIN,TOTAL 0.5 MG/DL (0.1-1.0); BUN/CREATININE RATIO 9; CALCIUM 8.9 MG/DL (8.5-10.1); CARBON DIOXIDE 20 MMOL/L (21-32); CHLORIDE 101 MMOL/L (98-107); CREATININE SERUM 0.67 MG/DL (0.60-1.30); GFR ESTIMATED 116; GLUCOSE 132 MG/DL (70-105); MAGNESIUM 1.4 MG/DL (1.6-2.4); POTASSIUM 3.4 MMOL/L (3.6-5.0); SODIUM 133 MMOL/L (135-145); TOTAL PROTEIN 6.4 GM/DL (6.4-8.2)
[2021-07-07] MEDS ORDERED: VANCOMYCIN INJECTION 1,000 MG in NS (IVPB) 250 ML IV STA (09:21)
[2021-07-07] MEDS ORDERED: MAGNESIUM 1 GM/100 ML IVPB 100 ML IV STA (09:25)
[2021-07-07 09:58] LABS: BILIRUBIN,URINE NEGATIVE (NEGATIVE); CLARITY,URINE CLEAR; COLOR,URINE YELLOW; GLUCOSE, URINE (UA) 1+ (NEGATIVE); KETONES,URINE TRACE (NEGATIVE); LEUKOCYTE ESTERASE ,URINE TRACE (NEGATIVE); NITRITE,URINE NEGATIVE (NEGATIVE); PROTEIN,URINE 1+ (NEGATIVE)
[2021-07-07 09:59] LABS: BACTERIA,URINE LARGE /HPF; RBC,URINE 25-50 /HPF; WBC,URINE 50-100 /HPF
[2021-07-07 10:04] LABS: AMPHETAMINE SCREEN, URINE POSITIVE (NEGATIVE); BARBITURATE SCREEN URINE NEGATIVE (NEGATIVE); BENZODIAZEPINES SCREEN URINE POSITIVE (NEGATIVE); CANNABINOID SCREEN, URINE NEGATIVE (NEGATIVE); COCAINE SCREEN URINE NEGATIVE (NEGATIVE); METHADONE STAT NEGATIVE (NEGATIVE); METHAMPHETAMINE SCREEN URINE S POSITIVE (NEGATIVE); OPIATE SCREEN URINE NEGATIVE (NEGATIVE); OXYCODONE STAT NEGATIVE (NEGATIVE); PROPOXYPHENE STAT NEGATIVE (NEGATIVE); TRICYCLIC ANTIDEPRESSANTS SCRE NEGATIVE (NEGATIVE)
[2021-07-07] MEDS ORDERED: IBUP-1780 PO (10:53)
[2021-07-07] MEDS ORDERED: ACHD5005 PO (10:53)
[2021-07-07] MEDS ORDERED: CLIN-144 PO (10:53)
[2021-07-07] MEDS ORDERED: METH-732 PO (11:14)
[2021-07-07 13:35] VITALS: BP 126/77
== END 2021-07-07 13:30 | disposition home or self-care (01) ==
LOC: EDUNIT# 08:11 → ER FS 08:12
DX: E86.0 Dehydration (principal); L03.115 Cellulitis of right lower limb; E83.42 Hypomagnesemia; R07.89 Other chest pain; G89.29 Other chronic pain; M54.9 Dorsalgia, unspecified; J45.909 Unspecified asthma, uncomplicated; E66.9 Obesity, unspecified; Z77.29 Contact with and (suspected) exposure to other hazardous substances; Z86.14 Personal history of Methicillin resistant Staphylococcus aureus infection; Z32.02 Encounter for pregnancy test, result negative; Z68.33 Body mass index [BMI] 33.0-33.9, adult; Z86.16 Personal history of COVID-19; Z88.0 Allergy status to penicillin; Z79.891 Long term (current) use of opiate analgesic; Z79.52 Long term (current) use of systemic steroids; Z79.1 Long term (current) use of non-steroidal anti-inflammatories (NSAID); Z79.899 Other long term (current) drug therapy
CPT/HCPCS: 36415; 80053; 80306; 81000; 83605; 83735; 83874; 84484; 84703; 85025; 85610; 85730; 86141; 87040; 87088; 93005

== ENCOUNTER 2021-07-08 16:23 | Emergency (ER) | payer OTHER ==
[~2021-07-08] VITALS: Ht 162 cm; Wt 95.0 kg
[~2021-07-08 16:23] MED LIST changes: +METH-732 PO
[2021-07-08] MEDS ORDERED: NS IV 1000 ML 1,000 ML IV STA (16:32)
--- NOTE | 2021-07-08 16:41 | ED Back Pain ---
General Chief Complaint: Back Problems Stated Complaint: BACK PAIN Nursing Triage Note: Patient arrived to ER by EMS with cc of ongoing back pain and right side rib pain. She reports that a few days ago she was moving furniture and since that time she has been having the pain. Source of Information: Patient, EMS Exam Limitations: No Limitations History of Present Illness Date Seen by Provider: Jul 08, 2021 Time Seen by Provider: 16:30 Initial Comments 35-year-old female with past medical history of asthma coming in via EMS from home for the second time in 2 days due to essentially whole body pain most notably in the right side of her ribs, upper abdomen, mid upper back as well as bilateral wrists. The pain is constant, severe, and nothing seems to make it better or worse. She says she is nauseous but no vomiting. Denies any fever, diarrhea, or any other concerns. Denies any prior history of cardiac disease. Denies any prior history of blood clots in her legs or lungs, no hemoptysis, no recent cough, no recent surgery, no recent long travel. Also denying any dysuria. Allergies and Home Medications Allergies Coded Allergies: penicillin G (Verified Allergy, Mild, Rash, 01/18/19) cefaclor (Verified Allergy, Unknown, 01/18/19) Patient Home Medication List Home Medication List Reviewed: Yes Albuterol Sulfate (Proventil Hfa) 6.7 Gm Hfa.aer.ad, 6.7 GM INH Q4H Prescribed by: CINDY HOFFMAN on 05/20/211904 Clindamycin HCl (Clindamycin HCl) 300 Mg Capsule, 300 MG PO TID Prescribed by: HUAN MARQUES on 07/07/21 1053 Guaifenesin (Mucinex) 1,200 Mg Tab.er.12h, 1,200 MG PO BID Prescribed by: CINDY HOFFMAN on 05/20/21 1905 Hydrocodone Bit/Acetaminophen (Lortab 5 Mg Tablet) 1 Tab Tab, 1 EACH PO Q6H PRN for PAIN-MODERATE Prescribed by: HUAN MARQUES on 01/18/19 1840 Hydrocodone/Acetaminophen (Hydrocodone-Acetamin 5-325 mg) 1 Each Tablet, 1 TAB PO Q6H PRN for PAIN-SEVERE (8-10) Prescribed by: HUAN MARQUES on 07/07/21 1054 Ibuprofen (Ibuprofen) 800 Mg Tablet, 800 MG PO Q8H PRN for PAIN Prescribed by: HUAN MARQUES on 01/18/19 1840 Ibuprofen (Ibuprofen) 800 Mg Tablet, 800 MG PO Q8H PRN for PAIN Prescribed by: HUAN MARQUES on 07/07/21 1053 Methocarbamol (Methocarbamol) 750 Mg Tablet, 750 MG PO Q6H PRN for MUSCLE SPASMS Prescribed by: HUAN MARQUES on 07/07/21 1114 Prednisone (Prednisone) 20 Mg Tab, 40 MG PO DAILY Prescribed by: CINDY HOFFMAN on 05/20/21 1905 Review of Systems Constitutional: No chills, No fever EENTM: No blurred vision Respiratory: No cough; short of breath Cardiovascular: chest pain Gastrointestinal: abdominal pain; No diarrhea; nausea; No vomiting Genitourinary: no symptoms reported Musculoskeletal: joint pain Skin: no symptoms reported Psychiatric/Neurological: No Symptoms Reported All Other Systems Reviewed Negative Unless Noted: Yes Past Yyvbqbb-Ssnuci-Hwyoex Hx Patient Social History Tobacco Use?: No Use of E-Cig and/or Vaping dev: No Substance use?: No Alcohol Use?: No Pt feels they are or have been: No Immunizations Up To Date First/Initial COVID19 Vaccinat: 2020 Second COVID19 Vaccination Venu: 2020 Third COVID19 Vaccination Date: 2020 Seasonal Allergies Seasonal Allergies: No Past Medical History Surgery/Hospitalization HX: Chronic Back Pain; Anxiety; GERD; Asthma; Depression; Asthma. Back surgery x3; left foot surgery Surgeries: Yes (WISDOM TEETH, BACK SURGERY X 3, LEFT FOOT, 1 VAG ) Respiratory: Yes Asthma Cardiac: No Neurological: No Genitourinary: No Gastrointestinal: No Musculoskeletal: No Endocrine: No HEENT: No Cancer: No Psychosocial: Yes Anxiety Integumentary: No Physical Exam Vital Signs Vital Signs - First Documented 07/08/21 16:32 Temp 36.8 Pulse 112 Resp 18 B/P (MAP) 120/87 (98) Pulse Ox 100 O2 Delivery Room Air Capillary Refill : Height, Weight, BMI Height: 5'4.00" Weight: 220lbs. oz. 99.143992cl; 36.00 BMI Method:Stated General Appearance: No Apparent Distress, WD/WN HEENT: PERRL/EOMI, Normal ENT Inspection, Pharynx Normal Neck: Full Range of Motion, Normal Inspection, Non Tender, Supple Cardiovascular: No Edema, Normal Peripheral Pulses, Tachycardia Respiratory: Chest Non Tender, Lungs Clear, Normal Breath Sounds, No Accessory Muscle Use, No Respiratory Distress Gastrointestinal: Normal Bowel Sounds, Soft; No Distended, No Guarding; Tenderness Back: Normal Inspection, No CVA Tenderness, No Vertebral Tenderness Extremity: Normal Capillary Refill, Normal Inspection, Normal Range of Motion, Non Tender, No Calf Tenderness, No Pedal Edema Neurologic/Psychiatric: Alert, No Motor/Sensory Deficits, Normal Mood/Affect Skin: Normal Color, Warm/Dry Lymphatic: No Adenopathy Progress/Results/Core Measures Results/Orders Lab Results Laboratory Tests Test 07/08/21 16:35 07/08/21 18:13 Range/Units White Blood Count 13.1 H 4.3-11.0 10^3/uL Red Blood Count 4.18 3.80-5.11 10^6/uL Hemoglobin 10.7 L 11.5-16.0 g/dL Hematocrit 33 L 35-52 % Mean Corpuscular Volume 80 80-99 fL Mean Corpuscular Hemoglobin 26 25-34 pg Mean Corpuscular Hemoglobin Concent 32 32-36 g/dL Red Cell Distribution Width 16.6 H 10.0-14.5 % Platelet Count 261 130-400 10^3/uL Mean Platelet Volume 10.8 9.0-12.2 fL Immature Granulocyte % (Auto) 0 % Neutrophils (%) (Auto) 89 H 42-75 % Lymphocytes (%) (Auto) 8 L 12-44 % Monocytes (%) (Auto) 3 0-12 % Eosinophils (%) (Auto) 0 0-10 % Basophils (%) (Auto) 0 0-10 % Neutrophils # (Auto) 11.6 H 1.8-7.8 X 10^3 Lymphocytes # (Auto) 1.0 1.0-4.0 X 10^3 Monocytes # (Auto) 0.4 0.0-1.0 X 10^3 Eosinophils # (Auto) 0.0 0.0-0.3 10^3/uL Basophils # (Auto) 0.0 0.0-0.1 10^3/uL Immature Granulocyte # (Auto) 0.1 0.0-0.1 10^3/uL Neutrophils % (Manual) 89 % Lymphocytes % (Manual) 8 % Monocytes % (Manual) 2 % Band Neutrophils 1 % Sodium Level 137 135-145 MMOL/L Potassium Level 3.3 L 3.6-5.0 MMOL/L Chloride Level 102 98-107 MMOL/L Carbon Dioxide Level 21 21-32 MMOL/L Anion Gap 14 5-14 MMOL/L Blood Urea Nitrogen 6 L 7-18 MG/DL Creatinine 0.62 0.60-1.30 MG/DL Estimat Glomerular Filtration Rate 118 BUN/Creatinine Ratio 10 Glucose Level 239 H 70-105 MG/DL Calcium Level 8.5 8.5-10.1 MG/DL Corrected Calcium 9.1 8.5-10.1 MG/DL Total Bilirubin 0.5 0.1-1.0 MG/DL Aspartate Amino Transf (AST/SGOT) 12 5-34 U/L Alanine Aminotransferase (ALT/SGPT) 6 0-55 U/L Alkaline Phosphatase 130 40-136 U/L Troponin I < 0.30 <0.30 NG/ML C-Reactive Protein 40.85 H <0.50 MG/DL Pro-B-Type Natriuretic Peptide 207.5 H <75.0 PG/ML Total Protein 6.7 6.4-8.2 GM/DL Albumin 3.3 3.2-4.5 GM/DL Lipase 27 8-78 U/L Influenza Type A Antigen NEGATIVE NEGATIVE Influenza Type B Antigen NEGATIVE NEGATIVE My Orders Orders - LAW PRASAD MD Cbc With Automated Diff (07/08/21 16:32) Comprehensive Metabolic Panel (07/08/21 16:32) Lipase (07/08/21 16:32) Probnp Fs (07/08/21 16:32) Crp Fs (07/08/21 16:32) Troponin I Fs (07/08/21 16:32) Ct Abdomen/Pelvis W (07/08/21 16:32) Ketorolac Injection (Toradol Injection) (07/08/21 16:45) Ondansetron Injection (Zofran Injectio (07/08/21 16:45) Ns Iv 1000 Ml (Sodium Chloride 0.9%) (07/08/21 16:32) Ct Angio Chest W (07/08/21 16:38) Manual Differential (07/08/21 16:35) Iohexol Injection (Omnipaque 350 Mg/Ml 1 (07/08/21 17:00) Iohexol Injection (Omnipaque 350 Mg/Ml 1 (07/08/21 17:00) Received Contrast (Hold Metformin- Contr (07/08/21 17:00) Sodium Chloride Flush (Catheter Flush Sy (07/08/21 17:00) Ns (Ivpb) (Sodium Chloride 0.9% Ivpb Bag (07/08/21 17:00) Influenza A & B Antigens (07/08/21 18:09) Medications Given in ED Current Medications Medications Dose Ordered Sig/Matthew Route Start Time Stop Time Status Last Admin Dose Admin Iohexol 125 ml ONCE ONCE IV 07/08/21 17:00 07/08/21 17:11 DC 07/08/21 17:32 125 ML Ketorolac Tromethamine 15 mg ONCE ONCE IVP 07/08/21 16:45 07/08/21 16:46 DC 07/08/21 16:39 15 MG Ondansetron HCl 4 mg ONCE ONCE IVP 07/08/21 16:45 07/08/21 16:46 DC 07/08/21 16:39 4 MG Sodium Chloride 10 ml NEEDED PRN IV 07/08/21 17:00 07/08/21 18:24 DC 07/08/21 17:32 10 ML Sodium Chloride 100 ml ONCE ONCE IV 07/08/21 17:00 07/08/21 17:11 DC 07/08/21 17:32 80 ML Vital Signs/I&O 07/08/21 07/08/21 16:32 18:23 Temp 36.8 36.8 Pulse 112 112 Resp 18 18 B/P (MAP) 120/87 (98) 120/87 Pulse Ox 100 100 O2 Delivery Room Air Room Air Blood Pressure Mean: 98 Progress Progress Note : Progress Note 35-year-old female with above history coming in due to general body aches, most notably in her chest through to her back and abdomen as well as wrist and shoulders. ABCs were intact and vitals were stable on presentation although she is mildly tachycardic similar to yesterday with a heart rate around 110. An IV was placed and she was given a bolus of IV fluids, Toradol, Zofran. CRP was around 30 yesterday and is 40 today. Has a mild leukocytosis. CT chest abdomen pelvis including a CTA of the chest performed to evaluate for infection that could have been missed versus PE versus some other etiology. I reviewed her blood cultures from yesterday which are no growth. Her urine appeared to be mixed linus and likely contaminated. She is taking the clindamycin prescribed yesterday for the cellulitis. Today her skin looks better. She is afebrile here. Given the elevated CRP the differential is broad including septic arthritis. She has full range of motion of her joints and I did a [id number] ultrasound of her wrist and she has no effusions making this less likely. Additionally, she has no swelling in her joints, she says she is not sexually active currently and has no symptoms of an STI. Some type of myositis like to myalgia myositis versus polymyositis on the differential, however her presentation is related to acute over the past day and a half for this to be the cause. She is adamant she has never used IV drugs, and says previously when she is drunk she would smoke, but says she has not used them in a while. Given this fact, and also she has no cardiac murmur, and she is afebrile, and has negative blood cultures from yesterday this all makes endocarditis less likely. I did learn later that she had been taking Suboxone, and recently stopped. It is possible this is a withdrawal syndrome vs flu-like illness. She had COVID last month so this is less likely. We will do a flu swab. I believe the patient is stable for discharge with outpatient follow-up. She was sent home with strict return prec autions. Of note, the patient was stating that she was going to have difficulty taking care of herself. I personally witnessed her ambulate without any assistance to the restroom. She also was drinking water on her own volition without assistance. Diagnostic Imaging Diagonstic Imaging: CT (CTA chest, CT abd/pelv) Comments [facility]. [place], [place] NAME: CHAU JACKSON [facility] REC#: [id number] PT STATUS: REG ER : 1985 PHYSICIAN: LAW PRASAD MD ADMIT DATE: 07/08/21/ER FS Draft Date of Exam:07/08/21 CT ANGIO CHEST W EXAMINATION: CT angiography of the chest. TECHNIQUE: Contrast enhanced thin section helical images were obtained through the chest with intravenous contrast timed for the optimal opacification of the arterial structures per CTA protocol. Post-processing, reconstructions and interpretation of angiographic images of the vessels was performed. 3D MIP reconstructions were performed and reviewed. All CT scans use one or more of the following dose optimizing techniques: automated exposure control, MA and/or KvP adjustment based on patient size and exam type or iterative reconstruction. HISTORY: Pleuritic chest pain, SOA, tachycardic COMPARISON: None available. FINDINGS: Vascular: No filling defects within the pulmonary arteries. Thoracic aorta is normal in caliber. Normal Thyroid: The thyroid is normal. Mediastinum: Heart size is normal without significant pericardial effusion. No suspicious lymphadenopathy. Lungs and airways: The lungs are clear without consolidation, pleural effusion or pneumothorax. Mild bibasilar atelectasis. The airways are normal. Upper abdomen: The subphrenic structures are normal. Musculoskeletal: No suspicious osseous lesion or compression fracture. IMPRESSION: No findings of pulmonary embolus or other acute abnormality in the chest. Dictated on workstation # [id number] Dict: 07/08/21 174 Trans: 07/08/[address] [facility] [id number] Interpreted by: FRED ZHOU DO Electronically signed by: [place], [place] NAME: CHAU JACKSON [facility] REC#: [id number] PT STATUS: REG ER : 1985 PHYSICIAN: LAW PRASAD MD ADMIT DATE: 07/08/21/ER FS Draft Date of Exam:07/08/21 CT ABDOMEN/PELVIS W EXAMINATION: CT abdomen and pelvis with intravenous contrast. TECHNIQUE: Multiple contiguous axial images were obtained through the abdomen and pelvis after the uneventful administration of intravenous contrast. All CT scans use one or more of the following dose optimizing techniques: automated exposure control, MA and/or KvP adjustment based on patient size and exam type or iterative reconstruction. HISTORY: Periumbilical abdominal pain and bilateral flank pain COMPARISON: None available. FINDINGS: Lung bases: The lung bases are clear. Solid organs: The liver is normal without focal lesion. The gallbladder is normal. There is no biliary ductal dilation. Pancreas is normal. Spleen is normal. Adrenal glands are normal. The kidneys are normal without hydronephrosis. Bowel: The stomach and small bowel are normal without obstruction. The colon and appendix are normal. Peritoneum: There is no intraperitoneal free fluid or free air. No suspicious lymphadenopathy. Vasculature: Normal without aneurysm. Musculoskeletal: There are surgical and degenerative changes of the spine without suspicious osseous lesion or acute compression fracture. Pelvis: The uterus and adnexa are normal. The urinary bladder is normal. IMPRESSION: No acute abnormality in the abdomen or pelvis. Dictated on workstation # [id number] Dict: 07/08/211738 Trans: 07/08/211741 [facility] [id number] Interpreted by: FRED ZHOU DO Electronically signed by: Departure Impression Primary Impression: Body aches Additional Impression: Flu-like symptoms Disposition: 01 HOME, SELF-CARE Condition: Stable Departure-Patient Inst. Decision time for Depature: 18:08 Referrals: MARÍA SANTAMARIA MD, RICKY D DO (PCP/Family) Primary Care Physician Patient Instructions: Viral Syndrome (DC), Joint Pain Add. Discharge Instructions: Please call Dr. Cagle's office to schedule an appointment and get set up so you can have a primary care doctor in town. If you begin having a fever greater than 100.4 F, unable to keep fluids down, or have any other concerns you can always come back to the ER Work/School Note: Work Release Form Date Seen in the Emergency Department: Jul 08, 2021 Return to Work: Jul 10, 2021 Restrictions: Return-No Fever (24hrs), Return-No Vomiting(24hrs) LAW PRASAD MD Jul 08, 2021 16:41
[2021-07-08 16:45] LABS: HEMATOCRIT 33 % (35-52); HEMOGLOBIN 10.7 g/dL (11.5-16.0); MEAN CORPUSCULAR HEMOGLOBIN 26 pg (25-34); MEAN CORPUSCULAR HGB CONC 32 g/dL (32-36); MEAN CORPUSCULAR VOLUME 80 fL (80-99); MEAN PLATELET VOLUME 10.8 fL (9.0-12.2); PLATELET COUNT 261 10^3/uL (130-400); WHITE BLOOD COUNT 13.1 10^3/uL (4.3-11.0)
[2021-07-08] MEDS ORDERED: ONDANSETRON 4 MG/2 ML (SDV) Z0FRAN IVP ONE (16:45)
[2021-07-08] MEDS ORDERED: KETOROLAC 30 MG/ML VIAL IVP ONE (16:45)
[2021-07-08 16:46] LABS: BASOPHILS % (AUTO) 0 % (0-10); EOSINOPHILS % (AUTO) 0 % (0-10); LYMPHOCYTES % (AUTO) 8 % (12-44); MONOCYTES # (AUTO) 0.4 X 10^3 (0.0-1.0); MONOCYTES % (AUTO) 3 % (0-12); NEUTROPHILS # (AUTO) 11.6 X 10^3 (1.8-7.8); NEUTROPHILS % (AUTO) 89 % (42-75)
[2021-07-08 16:59] LABS: BAND NEUTROPHILS 1 %; LYMPHOCYTES % (MANUAL) 8 %; MONOCYTES % (MANUAL) 2 %; NEUTROPHILS % (MANUAL) 89 %
[2021-07-08] MEDS ORDERED: IOHEXOL 350 MG/ML 150 ML (OMNIPAQUE 350) VIAL IV ONE ×2 (17:00)
[2021-07-08] MEDS ORDERED: HOLD METFORMIN - RECEIVED CONTRAST 20 ML VIAL IV SCH (17:00)
[2021-07-08] MEDS ORDERED: CATHETER FLUSH 10 ML SYR IV PRN (17:00)
[2021-07-08] MEDS ORDERED: NS 100 ML (IVPB) BAG IV ONE (17:00)
[2021-07-08 17:01] LABS: ALANINE AMINOTRANSFERASE 6 U/L (0-55); ALBUMIN 3.3 GM/DL (3.2-4.5); ALKALINE PHOSPHATASE 130 U/L (40-136); BILIRUBIN,TOTAL 0.5 MG/DL (0.1-1.0); BUN/CREATININE RATIO 10; CALCIUM 8.5 MG/DL (8.5-10.1); CARBON DIOXIDE 21 MMOL/L (21-32); CHLORIDE 102 MMOL/L (98-107); CREATININE SERUM 0.62 MG/DL (0.60-1.30); GFR ESTIMATED 118; GLUCOSE 239 MG/DL (70-105); LIPASE 27 U/L (8-78); POTASSIUM 3.3 MMOL/L (3.6-5.0); SODIUM 137 MMOL/L (135-145); TOTAL PROTEIN 6.7 GM/DL (6.4-8.2)
--- NOTE | 2021-07-08 17:43 | Diagnostic Imaging Report ---
EXAMINATION: CT abdomen and pelvis with intravenous contrast. TECHNIQUE: Multiple contiguous axial images were obtained through the abdomen and pelvis after the uneventful administration of intravenous contrast. All CT scans use one or more of the following dose optimizing techniques: automated exposure control, MA and/or KvP adjustment based on patient size and exam type or iterative reconstruction. HISTORY: Periumbilical abdominal pain and bilateral flank pain COMPARISON: None available. FINDINGS: Lung bases: The lung bases are clear. Solid organs: The liver is normal without focal lesion. The gallbladder is normal. There is no biliary ductal dilation. Pancreas is normal. Spleen is normal. Adrenal glands are normal. The kidneys are normal without hydronephrosis. Bowel: The stomach and small bowel are normal without obstruction. The colon and appendix are normal. Peritoneum: There is no intraperitoneal free fluid or free air. No suspicious lymphadenopathy. Vasculature: Normal without aneurysm. Musculoskeletal: There are surgical and degenerative changes of the spine without suspicious osseous lesion or acute compression fracture. Pelvis: The uterus and adnexa are normal. The urinary bladder is normal. IMPRESSION: No acute abnormality in the abdomen or pelvis. Dictated by: Dictated on workstation # [id number]
--- NOTE | 2021-07-08 17:46 | Diagnostic Imaging Report ---
EXAMINATION: CT angiography of the chest. TECHNIQUE: Contrast enhanced thin section helical images were obtained through the chest with intravenous contrast timed for the optimal opacification of the arterial structures per CTA protocol. Post-processing, reconstructions and interpretation of angiographic images of the vessels was performed. 3D MIP reconstructions were performed and reviewed. All CT scans use one or more of the following dose optimizing techniques: automated exposure control, MA and/or KvP adjustment based on patient size and exam type or iterative reconstruction. HISTORY: Pleuritic chest pain, SOA, tachycardic COMPARISON: None available. FINDINGS: Vascular: No filling defects within the pulmonary arteries. Thoracic aorta is normal in caliber. Normal Thyroid: The thyroid is normal. Mediastinum: Heart size is normal without significant pericardial effusion. No suspicious lymphadenopathy. Lungs and airways: The lungs are clear without consolidation, pleural effusion or pneumothorax. Mild bibasilar atelectasis. The airways are normal. Upper abdomen: The subphrenic structures are normal. Musculoskeletal: No suspicious osseous lesion or compression fracture. IMPRESSION: No findings of pulmonary embolus or other acute abnormality in the chest. Dictated by: Dictated on workstation # [id number]
[2021-07-08 18:23] VITALS: BP 120/87
== END 2021-07-08 18:24 | disposition home or self-care (01) ==
LOC: EDUNIT# 16:23 → ER FS 16:24
DX: R07.81 Pleurodynia (principal); R10.10 Upper abdominal pain, unspecified; M54.6 Pain in thoracic spine; M25.531 Pain in right wrist; M25.532 Pain in left wrist; M25.511 Pain in right shoulder; M25.512 Pain in left shoulder; D72.829 Elevated white blood cell count, unspecified; G89.29 Other chronic pain; M54.9 Dorsalgia, unspecified; J45.909 Unspecified asthma, uncomplicated; Z79.891 Long term (current) use of opiate analgesic; Z79.1 Long term (current) use of non-steroidal anti-inflammatories (NSAID); Z79.899 Other long term (current) drug therapy; X50.0XXA Overexertion from strenuous movement or load, initial encounter
CPT/HCPCS: 36415; 71275; 74177; 80053; 83690; 83880; 84484; 85007; 85027; 86141; 87804

== ENCOUNTER 2021-07-16 12:12 | Emergency (ER) | payer OTHER ==
[~2021-07-16] VITALS: Ht 162 cm; Wt 95.0 kg
--- NOTE | 2021-07-16 12:25 | ED General ---
General Chief Complaint: General Problems/Pain Stated Complaint: CAN'T MOVE SHOULDERS,WRISTS,RT LEG/FEVER/CHILLS History of Present Illness Date Seen by Provider: Jul 16, 2021 Time Seen by Provider: 12:21 Initial Comments 35-year-old female reports that she was sent here by her primary care provider. Patient is complaining of some generalized body aches and pain especially in her upper shoulders chest wall. Patient has been seen twice in the ER and 3 times by her primary care provider for the same thing. Reports is been going on for a couple weeks. Patient states that she received a steroid injection for it last week. She states that she could "no longer take care of her self at home because of it" discussed case with patient's primary Dr. MAYNARD. He is concerned about a potential pericarditis versus other etiology in the lungs and would like to have her evaluated for that. Patient reports fever at home. He does not have any fever upon his evaluations or when she has been to the ER. Allergies and Home Medications Allergies Coded Allergies: penicillin G (Verified Allergy, Mild, Rash, 01/18/19) cefaclor (Verified Allergy, Unknown, 01/18/19) Patient Home Medication List Home Medication List Reviewed: Yes Albuterol Sulfate (Proventil Hfa) 6.7 Gm Hfa.aer.ad, 6.7 GM INH Q4H Prescribed by: CINDY HOFFMAN on 05/20/211904 Clindamycin HCl (Clindamycin HCl) 300 Mg Capsule, 300 MG PO TID Prescribed by: HUAN MARQUES on 07/07/21 1053 Guaifenesin (Mucinex) 1,200 Mg Tab.er.12h, 1,200 MG PO BID Prescribed by: CINDY HOFFMAN on 05/20/21 1905 Hydrocodone Bit/Acetaminophen (Lortab 5 Mg Tablet) 1 Tab Tab, 1 EACH PO Q6H PRN for PAIN-MODERATE Prescribed by: HUAN MARQUES on 01/18/19 1840 Hydrocodone/Acetaminophen (Hydrocodone-Acetamin 5-325 mg) 1 Each Tablet, 1 TAB PO Q6H PRN for PAIN-SEVERE (8-10) Prescribed by: HUAN MARQUES on 07/07/21 1054 Ibuprofen (Ibuprofen) 800 Mg Tablet, 800 MG PO Q8H PRN for PAIN Prescribed by: HUAN MARQUES on 01/18/19 1840 Ibuprofen (Ibuprofen) 800 Mg Tablet, 800 MG PO Q8H PRN for PAIN Prescribed by: HUAN ROSSRT on 07/07/21 1053 Methocarbamol (Methocarbamol) 750 Mg Tablet, 750 MG PO Q6H PRN for MUSCLE SPASMS Prescribed by: HUAN ROSSRT on 07/07/21 1114 Prednisone (Prednisone) 20 Mg Tab, 40 MG PO DAILY Prescribed by: CINDY HOFFMAN on 05/20/21 1905 Review of Systems Review of Systems Constitutional: see HPI, malaise, weakness Past Kfpmpwc-Hdalxf-Yzqahw Hx Immunizations Up To Date First/Initial COVID19 Vaccinat: 2020 Second COVID19 Vaccination Venu: 2020 Third COVID19 Vaccination Date: 2020 Seasonal Allergies Seasonal Allergies: No Past Medical History Surgery/Hospitalization HX: Chronic Back Pain; Anxiety; GERD; Asthma; Depression; Asthma. Back surgery x3; left foot surgery Surgeries: Yes (WISDOM TEETH, BACK SURGERY X 3, LEFT FOOT, 1 VAG ) Respiratory: Yes Asthma Cardiac: No Neurological: No Genitourinary: No Gastrointestinal: No Musculoskeletal: No Endocrine: No HEENT: No Cancer: No Psychosocial: Yes Anxiety Integumentary: No Physical Exam Vital Signs Vital Signs - First Documented 07/16/21 12:15 Temp 36.1 Pulse 105 Resp 16 B/P (MAP) 152/101 (118) Pulse Ox 98 O2 Delivery Room Air Capillary Refill : Height, Weight, BMI Height: 5'4.00" Weight: 220lbs. oz. [id number]; 36.00 BMI Method:Stated General Appearance: Other (Unkept) Neck: Full Range of Motion, Normal Inspection Respiratory: Lungs Clear, Normal Breath Sounds Cardiovascular: Regular Rate, Rhythm Gastrointestinal: Non Tender, Soft Extremity: Normal Capillary Refill, Other (Patient with pain and shoulder left greater than right, left wrist, right knee with some mild swelling.) Neurologic/Psychiatric: Alert, Oriented x3, No Motor/Sensory Deficits, Normal Mood/Affect Progress/Results/Core Measures Suspected Sepsis SIRS Temperature: Pulse: Respiratory Rate: Laboratory Tests 07/16/21 12:35: White Blood Count 13.8H Blood Pressure / Mean: Laboratory Tests 07/16/21 12:35: Creatinine 0.57L, Platelet Count 538H, Total Bilirubin 0.2 Results/Orders Lab Results Laboratory Tests Test 07/16/21 12:24 07/16/21 12:35 Range/Units Urine Color YELLOW Urine Clarity CLOUDY H Urine pH 6.5 5-9 Urine Specific [place] 1.025 H 1.016-1.022 Urine Protein NEGATIVE NEGATIVE Urine Glucose (UA) NEGATIVE NEGATIVE Urine Ketones NEGATIVE NEGATIVE Urine Nitrite NEGATIVE NEGATIVE Urine Bilirubin NEGATIVE NEGATIVE Urine Urobilinogen 0.2 < = 1.0 MG/DL Urine Leukocyte Esterase NEGATIVE NEGATIVE Urine RBC (Auto) 3+ H NEGATIVE Urine RBC 2-5 H /HPF Urine WBC 0-2 /HPF Urine Squamous Epithelial Cells 25-50 H /HPF Urine Crystals NONE /LPF Urine Bacteria FEW H /HPF Urine Casts NONE /LPF Urine Mucus MODERATE H /LPF Urine Culture Indicated NO Urine Opiates Screen NEGATIVE NEGATIVE Urine Oxycodone Screen NEGATIVE NEGATIVE Urine Methadone Screen NEGATIVE NEGATIVE Urine Propoxyphene Screen NEGATIVE NEGATIVE Urine Barbiturates Screen NEGATIVE NEGATIVE Ur Tricyclic Antidepressants Screen NEGATIVE NEGATIVE Urine Phencyclidine Screen NEGATIVE NEGATIVE Urine Amphetamines Screen NEGATIVE NEGATIVE Urine Methamphetamines Screen NEGATIVE NEGATIVE Urine Benzodiazepines Screen POSITIVE H NEGATIVE Urine Cocaine Screen NEGATIVE NEGATIVE Urine Cannabinoids Screen NEGATIVE NEGATIVE White Blood Count 13.8 H 4.3-11.0 10^3/uL Red Blood Count 3.99 3.80-5.11 10^6/uL Hemoglobin 10.1 L 11.5-16.0 g/dL Hematocrit 31 L 35-52 % Mean Corpuscular Volume 78 L 80-99 fL Mean Corpuscular Hemoglobin 25 25-34 pg Mean Corpuscular Hemoglobin Concent 33 32-36 g/dL Red Cell Distribution Width 15.7 H 10.0-14.5 % Platelet Count 538 H 130-400 10^3/uL Mean Platelet Volume 9.6 9.0-12.2 fL Immature Granulocyte % (Auto) 1 % Neutrophils (%) (Auto) 80 H 42-75 % Lymphocytes (%) (Auto) 13 12-44 % Monocytes (%) (Auto) 5 0-12 % Eosinophils (%) (Auto) 1 0-10 % Basophils (%) (Auto) 0 0-10 % Neutrophils # (Auto) 11.1 H 1.8-7.8 10^3/uL Lymphocytes # (Auto) 1.9 1.0-4.0 10^3/uL Monocytes # (Auto) 0.7 0.0-1.0 10^3/uL Eosinophils # (Auto) 0.1 0.0-0.3 10^3/uL Basophils # (Auto) 0.0 0.0-0.1 10^3/uL Immature Granulocyte # (Auto) 0.1 0.0-0.1 10^3/uL Erythrocyte Sedimentation Rate > 140 H 0-20 MM/HR Sodium Level 138 135-145 MMOL/L Potassium Level 3.8 3.6-5.0 MMOL/L Chloride Level 97 L 98-107 MMOL/L Carbon Dioxide Level 28 21-32 MMOL/L Anion Gap 13 5-14 MMOL/L Blood Urea Nitrogen 7 7-18 MG/DL Creatinine 0.57 L 0.60-1.30 MG/DL Estimat Glomerular Filtration Rate 121 BUN/Creatinine Ratio 12 Glucose Level 125 H 70-105 MG/DL Calcium Level 9.0 8.5-10.1 MG/DL Corrected Calcium 9.5 8.5-10.1 MG/DL Total Bilirubin 0.2 0.1-1.0 MG/DL Aspartate Amino Transf (AST/SGOT) 8 5-34 U/L Alanine Aminotransferase (ALT/SGPT) 5 0-55 U/L Alkaline Phosphatase 85 40-136 U/L Troponin I < 0.30 <0.30 NG/ML C-Reactive Protein 12.41 H <0.50 MG/DL Total Protein 7.3 6.4-8.2 GM/DL Albumin 3.4 3.2-4.5 GM/DL Influenza Type A Antigen NEGATIVE NEGATIVE Influenza Type B Antigen NEGATIVE NEGATIVE Group A Streptococcus Screen NEGATIVE NEGATIVE My Orders Orders - HENRIQUE TRAN DO Cbc With Automated Diff (07/16/21 12:26) Comprehensive Metabolic Panel (07/16/21 12:26) Drug Screen Stat (Urine) (07/16/21 12:26) Procalcitonin (Pct) (07/16/21 12:26) Rapid Strep A Screen (07/16/21 12:26) Ua Culture If Indicated (07/16/21 12:26) Erythrocyte Sedimentation Rate (07/16/21 12:26) Crp Fs (07/16/21 12:26) Troponin I Fs (07/16/21 12:26) Influenza A & B Antigens (07/16/21 12:26) Ekg Tracing (07/16/21 12:26) Toradol 30 Mg Ivp (07/16/21 13:42) Vital Signs/I&O 07/16/21 12:15 Temp 36.1 Pulse 105 Resp 16 B/P (MAP) 152/101 (118) Pulse Ox 98 O2 Delivery Room Air Capillary Refill : Progress Note : Progress Note Patient has had significant work-ups in the ER. Her CRP was elevated as high as 40 on 07/08/2021. However it is down to 12.4 at this time. She has a stable white count at 13.8. Patient had negative blood cultures on 07/08/2021. Patient had negative CTA and abdominal CT on 07/09/2021. Patient should be on day 9/10 of her clindamycin. Patient has a negative EKG. There is no signs of any pericarditis on EKG or on her prior CTA. At this time I will forego another CTA. Discussed with patient the I believe she probably has autoimmune versus another cause for inflammatory reaction in her body. Could be post Covid. However she does need further outpatient evaluation. Patient's ESR is elevated. Due to her just recently having steroids I will not start her on steroid. I will give her a shot of Toradol to see if we can help with some pain. I did recommend that she follow-up with her primary care provider, consider an echocardiogram as well as rheumatology or infectious disease specialist consultation. Patient denies any recent or former STD such as gonorrhea or risk factors for disseminated illnesses. Patient stable and discharged home ECG Initial ECG Impression Date: Jul 16, 2021 Initial ECG Impression Time: 12:53 Initial ECG Rate: 98 Initial ECG Rhythm: Normal Sinus Initial ECG Impression: Normal Departure Impression Primary Impression: Pain in joint, multiple sites Additional Impressions: Elevated erythrocyte sedimentation rate Elevated C-reactive protein Disposition: 01 HOME, SELF-CARE Condition: Stable Departure-Patient Inst. Referrals: JARET MAYNARD DO (PCP/Family) Primary Care Physician Patient Instructions: Joint Pain, Erythrocyte Sedimentation Rate, C-Reactive Protein Test Add. Discharge Instructions: Follow-up with Dr. MAYNARD for further outpatient evaluation. You may need to see a specialist such as short haul driver or infectious disease. I would encourage you discuss with him possible etiologies such as Lyme disease, auto immune, or other infectious processes. All discharge instructions reviewed with patient and/or family. Voiced understanding. HENRIQUE TRAN DO Jul 16, 2021 12:25
[2021-07-16 12:34] LABS: BILIRUBIN,URINE NEGATIVE (NEGATIVE); COLOR,URINE YELLOW; GLUCOSE, URINE (UA) NEGATIVE (NEGATIVE); KETONES,URINE NEGATIVE (NEGATIVE); LEUKOCYTE ESTERASE ,URINE NEGATIVE (NEGATIVE); NITRITE,URINE NEGATIVE (NEGATIVE); PH,URINE 6.5 (5-9); PROTEIN,URINE NEGATIVE (NEGATIVE)
[2021-07-16 12:42] LABS: BASOPHILS % (AUTO) 0 % (0-10); EOSINOPHILS # (AUTO) 0.1 10^3/uL (0.0-0.3); EOSINOPHILS % (AUTO) 1 % (0-10); HEMATOCRIT 31 % (35-52); HEMOGLOBIN 10.1 g/dL (11.5-16.0); LYMPHOCYTES # (AUTO) 1.9 10^3/uL (1.0-4.0); LYMPHOCYTES % (AUTO) 13 % (12-44); MEAN CORPUSCULAR HEMOGLOBIN 25 pg (25-34); MEAN CORPUSCULAR HGB CONC 33 g/dL (32-36); MEAN CORPUSCULAR VOLUME 78 fL (80-99); MEAN PLATELET VOLUME 9.6 fL (9.0-12.2); MONOCYTES # (AUTO) 0.7 10^3/uL (0.0-1.0); MONOCYTES % (AUTO) 5 % (0-12); NEUTROPHILS # (AUTO) 11.1 10^3/uL (1.8-7.8); NEUTROPHILS % (AUTO) 80 % (42-75); PLATELET COUNT 538 10^3/uL (130-400); WHITE BLOOD COUNT 13.8 10^3/uL (4.3-11.0)
[2021-07-16 13:07] LABS: AMPHETAMINE SCREEN, URINE NEGATIVE (NEGATIVE); BENZODIAZEPINES SCREEN URINE POSITIVE (NEGATIVE); CANNABINOID SCREEN, URINE NEGATIVE (NEGATIVE); COCAINE SCREEN URINE NEGATIVE (NEGATIVE); METHAMPHETAMINE SCREEN URINE S NEGATIVE (NEGATIVE); OPIATE SCREEN URINE NEGATIVE (NEGATIVE)
[2021-07-16 13:08] LABS: BARBITURATE SCREEN URINE NEGATIVE (NEGATIVE); METHADONE STAT NEGATIVE (NEGATIVE); OXYCODONE STAT NEGATIVE (NEGATIVE); PROPOXYPHENE STAT NEGATIVE (NEGATIVE); TRICYCLIC ANTIDEPRESSANTS SCRE NEGATIVE (NEGATIVE)
[2021-07-16 13:09] LABS: BUN/CREATININE RATIO 12; CARBON DIOXIDE 28 MMOL/L (21-32); CHLORIDE 97 MMOL/L (98-107); CREATININE SERUM 0.57 MG/DL (0.60-1.30); GFR ESTIMATED 121; POTASSIUM 3.8 MMOL/L (3.6-5.0); SODIUM 138 MMOL/L (135-145)
[2021-07-16 13:10] LABS: ALANINE AMINOTRANSFERASE 5 U/L (0-55); ALBUMIN 3.4 GM/DL (3.2-4.5); ALKALINE PHOSPHATASE 85 U/L (40-136); BILIRUBIN,TOTAL 0.2 MG/DL (0.1-1.0); GLUCOSE 125 MG/DL (70-105); TOTAL PROTEIN 7.3 GM/DL (6.4-8.2)
[2021-07-16 13:18] LABS: ERYTHROCYTE SEDIMENTATION RATE > 140 MM/HR (0-20)
[2021-07-16 13:21] LABS: BACTERIA,URINE FEW /HPF; CLARITY,URINE CLOUDY; SQUAMOUS EPITHELIAL CELL,UR 25-50 /HPF; WBC,URINE 0-2 /HPF
[2021-07-16] MEDS ORDERED: KETOROLAC 30 MG/ML VIAL IVP STA (13:42)
[2021-07-16 13:52] VITALS: BP 146/72
== END 2021-07-16 13:52 | disposition home or self-care (01) ==
LOC: EDUNIT# 12:12 → ER FS 12:15
DX: M25.512 Pain in left shoulder (principal); M25.532 Pain in left wrist; M25.561 Pain in right knee; R70.0 Elevated erythrocyte sedimentation rate; R79.82 Elevated C-reactive protein (CRP); J45.909 Unspecified asthma, uncomplicated
CPT/HCPCS: 36415; 80053; 80306; 81000; 84145; 84484; 84703; 85025; 85652; 86141; 87430; 87804; 93005

== ENCOUNTER → 2021-10-23 | Outpatient (CLI) | payer MEDICARE ==
--- NOTE | 2021-10-23 12:30 | Diagnostic Imaging Report ---
Indication: Left shoulder pain. Time of Exam: 11:13 AM 2 views left shoulder demonstrate normal glenohumeral and acromio clavicular alignment. Acromiohumeral space is normal. No fracture or dislocation is identified. IMPRESSION: No acute abnormality is detected. Dictated by: Dictated on workstation # [id number]
--- NOTE | 2021-10-23 12:33 | Diagnostic Imaging Report ---
Indication: Bilateral foot pain. Time of Exam: 11:20 AM 3 views of each foot were obtained. Left foot does show an old healed fracture of the 1st metatarsal. No new fractures are seen. Phalanges and metatarsals are intact. Midfoot and hindfoot are unremarkable. Right foot demonstrates the metatarsals and phalanges to be intact. Midfoot and hindfoot are unremarkable. No fractures are seen. IMPRESSION: No acute feature within the right or left foot is identified. Dictated by: Dictated on workstation # [id number]
--- NOTE | 2021-10-23 12:33 | Diagnostic Imaging Report ---
INDICATION: Bilateral hand pain. TIME OF EXAM: 11:15 AM 3 views of each hand were obtained. The metacarpals and phalanges are intact bilaterally. Carpus is unremarkable. The MCP and interphalangeal joints are well-maintained. No osseous erosions are seen. There are no fractures. Soft tissues are unremarkable. IMPRESSION: Unremarkable bilateral hand radiographs. Dictated by: Dictated on workstation # [id number]
== END ==
LOC: RAD FS 10:36
DX: M25.512 Pain in left shoulder (principal); M79.672 Pain in left foot; M79.671 Pain in right foot; M79.642 Pain in left hand; M79.641 Pain in right hand
CPT/HCPCS: 73030

== ENCOUNTER 2022-02-09 11:11 | Emergency (ER) | payer MEDICARE ==
[~2022-02-09] VITALS: Ht 162.5 cm; Wt 95.0 kg
[2022-02-09] MEDS ORDERED: CLIN-144 PO (11:36)
--- NOTE | 2022-02-09 11:37 | ED EENT ---
History of Present Illness General Chief Complaint: Dental Problems/Pain Stated Complaint: DENTAL ABSCESS; CHEST PAIN Source: patient Exam Limitations: no limitations History of Present Illness Date Seen by Provider: Feb 09, 2022 Time Seen by Provider: 11:16 Initial Comments 36-year-old female with past medical history as of rheumatologic issues not on any medications coming in due to concerns for dental infection. Right upper tooth started having some pain and swelling within the past couple days. She noticed that it started draining yesterday and the swelling has gotten better. Has been intermittently taking ibuprofen or Tylenol, has not had anything today. No fevers today that she knows of. She feels like the drainage down her throat and cause some discomfort, but is currently not having any type of chest pain or shortness of breath. Is otherwise denying any other acute complaints Allergies and Home Medications Allergies Coded Allergies: penicillin G (Verified Allergy, Mild, Rash, 01/18/19) cefaclor (Verified Allergy, Unknown, 01/18/19) Patient Home Medication List Home Medication List Reviewed: Yes Albuterol Sulfate (Proventil Hfa) 6.7 Gm Hfa.aer.ad, 6.7 GM INH Q4H Prescribed by: CINDY HOFFMAN on 05/20/21 190 Clindamycin HCl (Clindamycin HCl) 300 Mg Capsule, 300 MG PO TID Prescribed by: HUAN MARQUES on 07/07/21 105 Clindamycin HCl (Clindamycin HCl) 300 Mg Capsule, 300 MG PO QID Prescribed by: LAW PRASAD on 02/09/22 1136 Guaifenesin (Mucinex) 1,200 Mg Tab.er.12h, 1,200 MG PO BID Prescribed by: CINDY HOFFMAN on 05/20/21 1905 Hydrocodone Bit/Acetaminophen (Lortab 5 Mg Tablet) 1 Tab Tab, 1 EACH PO Q6H PRN for PAIN-MODERATE Prescribed by: HUAN MARQUES on 01/18/19 1840 Hydrocodone/Acetaminophen (Hydrocodone-Acetamin 5-325 mg) 1 Each Tablet, 1 TAB PO Q6H PRN for PAIN-SEVERE (8-10) Prescribed by: HUAN MARQUES on 07/07/21 1054 Ibuprofen (Ibuprofen) 800 Mg Tablet, 800 MG PO Q8H PRN for PAIN Prescribed by: HUAN MARQUES on 01/18/19 1840 Ibuprofen (Ibuprofen) 800 Mg Tablet, 800 MG PO Q8H PRN for PAIN Prescribed by: HUAN MARQUES on 07/07/21 1053 Methocarbamol (Methocarbamol) 750 Mg Tablet, 750 MG PO Q6H PRN for MUSCLE SPASMS Prescribed by: HUAN MARQUES on 07/07/21 1114 Prednisone (Prednisone) 20 Mg Tab, 40 MG PO DAILY Prescribed by: CINDY HOFFMAN on 05/20/21 1905 Review of Systems Review of Systems Constitutional: fever Eyes: No Symptoms Reported Ears: No Symptoms Reported Nose: no symptoms reported Mouth: see HPI Throat: no symptoms reported Respiratory: no symptoms reported Cardiovascular: no symptoms reported Gastrointestinal: no symptoms reported Musculoskeletal: no symptoms reported Skin: no symptoms reported Neurological: No Symptoms Reported Hematologic/Lymphatic: No Symptoms Reported Immunological/Allergic: no symptoms reported All Other Systems Reviewed Negative Unless Noted: Yes Past Xxzirfz-Ruggjd-Mvhtbl Hx Patient Social History Tobacco Use?: Yes Tobacco type used: Cigars Smoking Status: Current Someday Smoker Use of E-Cig and/or Vaping dev: No Substance use?: No Alcohol Use?: No Pt feels they are or have been: No Immunizations Up To Date First/Initial COVID19 Vaccinat: 2020 Second COVID19 Vaccination Venu: 2020 Third COVID19 Vaccination Date: 2020 Seasonal Allergies Seasonal Allergies: No Past Medical History Surgery/Hospitalization HX: Chronic Back Pain; Anxiety; GERD; Asthma; Depression; Asthma. Back surgery x3; left foot surgery Surgeries: Yes (WISDOM TEETH, BACK SURGERY X 3, LEFT FOOT, 1 VAG ) Respiratory: Yes Asthma Cardiac: No Neurological: No Genitourinary: No Gastrointestinal: No Musculoskeletal: No Endocrine: No HEENT: No Cancer: No Psychosocial: Yes Anxiety Integumentary: No Physical Exam Vital Signs Vital Signs - First Documented 02/09/22 11:14 Temp 36.0 Pulse 93 Resp 16 B/P (MAP) 120/91 (101) Pulse Ox 99 O2 Delivery Room Air Height, Weight, BMI Height: 5'4.00" Weight: 220lbs. oz. 99.951236zj; 36.00 BMI Method:Stated General Appearance: WD/WN, no apparent distress Eyes: bilateral eye normal inspection Ears: bilateral ear auricle normal Nose: normal inspection Mouth/Throat: dental tenderness (Dental tenderness with no palpable abscess around tooth #4 with multiple dental caries, oropharynx appears normal otherwise) Neck: non-tender, full range of motion, supple, normal inspection Cardiovascular: regular rate, rhythm, no edema, no murmur Respiratory: chest non-tender, lungs clear, normal breath sounds, no respiratory distress, no accessory muscle use Gastrointestinal: normal bowel sounds, non tender, soft; No distended, No guarding Neurologic/Psychiatric: no motor/sensory deficits, alert, normal mood/affect Skin: normal color, warm/dry Progress/Results/Core Measures Results/Orders Vital Signs/I&O 02/09/22 11:14 Temp 36.0 Pulse 93 Resp 16 B/P (MAP) 120/91 (101) Pulse Ox 99 O2 Delivery Room Air Progress Progress Note : Progress Note 36-year-old female with above history coming in due to dental pain. ABCs were intact and vitals were stable on presentation. Physical exam with dental tenderness but no obvious dental abscess that would require drainage. We will start her on antibiotics and have her follow-up with a dentist. Departure Impression Primary Impression: Dental infection Disposition: HOME, SELF-CARE Condition: Stable Departure-Patient Inst. Decision time for Depature: 11:35 Referrals: JARET MAYNARD DO (PCP) Primary Care Physician Patient Instructions: Dental Pain ED Add. Discharge Instructions: You do have an infection from that tooth. You will be on antibiotics for the next week. Take ibuprofen as needed. He can also try icing it. Unfortunately, the antibiotics are more like a Band-Aid, and this infection will get worse and come back until the tooth is taken out. Please follow-up with the dentist as soon as able. Scripts Ibuprofen (Ibuprofen) 600 Mg Tablet 600 MG PO Q6H PRN for PAIN-MILD for 5 Days, #20 TAB Prov: LAW PRASAD MD 02/09/22 Clindamycin HCl (Clindamycin HCl) 300 Mg Capsule 300 MG PO QID for 7 Days, #28 CAP Prov: LAW PRASAD MD 02/09/22 Work/School Note: Work Release Form Date Seen in the Emergency Department: Feb 09, 2022 Return to Work: Feb 11, 2022 Restrictions: No Restrictions LAW PRASAD MD Feb 09, 2022 11:37
[2022-02-09] MEDS ORDERED: IBUP-1773 PO (11:38)
[2022-02-09 11:52] VITALS: BP 120/91
== END 2022-02-09 11:52 | disposition home or self-care (01) ==
LOC: EDUNIT# 11:11 → ER FS 11:13
DX: K04.7 Periapical abscess without sinus (principal); F17.290 Nicotine dependence, other tobacco product, uncomplicated
CPT/HCPCS: 99282

== ENCOUNTER 2022-02-13 15:29 | Emergency (ER) | payer MEDICARE ==
[~2022-02-13 15:29] MED LIST changes: +IBUP-1773 PO
--- NOTE | 2022-02-13 16:08 | ED EENT ---
History of Present Illness General Chief Complaint: Dental Problems/Pain Stated Complaint: TOOTH PAIN Nursing Triage Note: DENTAL PAIN AND REPORTS THE IBUPROFEN IS HURTING HER STOMACH. Source: patient, old records History of Present Illness Date Seen by Provider: Feb 13, 2022 Time Seen by Provider: 16:08 Initial Comments 36-year-old female presenting with complaints of increased dental pain and stomach irritation from taking the antibiotic and ibuprofen. She states she has been alternating ibuprofen and acetaminophen but continues to have pain. By taking so much ibuprofen she is starting to cause irritation to her stomach. She has had increased intake of Tums and gvqr-gpn-aligahq indigestion med ications. She denies any blood in her stools, she has no pain with urination. She has an appointment to see a dentist on March 05. She states she is in between primary care providers currently and trying to get in with somebody new. Timing/Duration: abrupt Severity: severe Location: dental Prearrival Treatment: over the counter meds, prescription meds (Antibiotic) Modifying Factors: Worse With Other (Eating and drinking makes the pain worse) Associated Symptoms: No change in hearing, No cough, No drooling, No ear drainage; facial pain/swelling (Right side); No fever, No malaise, No nasal congestion/drainage, No poor fluid intake, No poor solids intake, No sinus infection, No sore throat, No tooth pain, No voice change Allergies and Home Medications Allergies Coded Allergies: penicillin G (Verified Allergy, Mild, Rash, 01/18/19) cefaclor (Verified Allergy, Unknown, 01/18/19) Patient Home Medication List Home Medication List Reviewed: Yes Albuterol Sulfate (Proventil Hfa) 6.7 Gm Hfa.aer.ad, 6.7 GM INH Q4H Prescribed by: CINDY HOFFMAN on 05/20/21 190 Clindamycin HCl (Clindamycin HCl) 300 Mg Capsule, 300 MG PO QID Prescribed by: LAW PRASAD on 02/09/22 1136 Hydrocodone/Acetaminophen (Hydrocodone-Acetamin 5-325 mg) 5 Mg-325 Mg Tablet, 1 TAB PO Q6H PRN for PAIN-SEVERE (8-10) Prescribed by: HUAN MARQUES on 02/13/22 1639 Ibuprofen (Ibuprofen) 600 Mg Tablet, 600 MG PO Q6H PRN for PAIN-MILD Prescribed by: LAW PRASAD on 02/09/22 1138 Omeprazole (Omeprazole) 20 Mg Capsule.dr, 20 MG PO DAILY Prescribed by: HUAN MARQUES on 02/13/22 1641 Prednisone (Prednisone) 20 Mg Tab, 40 MG PO DAILY Prescribed by: CINDY HOFFMAN on 05/20/21 1905 Discontinued Medications Clindamycin HCl (Clindamycin HCl) 300 Mg Capsule, 300 MG PO TID Prescribed by: HUAN MARQUES on 07/07/21 1053 Guaifenesin (Mucinex) 1,200 Mg Tab.er.12h, 1,200 MG PO BID Prescribed by: CINDY HOFFMAN on 05/20/21 190 Hydrocodone Bit/Acetaminophen (Lortab 5 Mg Tablet) 1 Tab Tab, 1 EACH PO Q6H PRN for PAIN-MODERATE Prescribed by: HUAN MARQUES on 01/18/19 1840 Hydrocodone/Acetaminophen (Hydrocodone-Acetamin 5-325 mg) 1 Each Tablet, 1 TAB PO Q6H PRN for PAIN-SEVERE (8-10) Prescribed by: HUAN MARQUES on 07/07/21 1054 Ibuprofen (Ibuprofen) 800 Mg Tablet, 800 MG PO Q8H PRN for PAIN Prescribed by: HUAN MARQUES on 01/18/19 1840 Ibuprofen (Ibuprofen) 800 Mg Tablet, 800 MG PO Q8H PRN for PAIN Prescribed by: HUAN MARQUES on 07/07/21 1053 Methocarbamol (Methocarbamol) 750 Mg Tablet, 750 MG PO Q6H PRN for MUSCLE SPASMS Prescribed by: HUAN MARQUES on 07/07/21 1114 Review of Systems Review of Systems Constitutional: No chills, No fever Eyes: No Symptoms Reported Ears: No Symptoms Reported Nose: no symptoms reported Mouth: see HPI Throat: no symptoms reported Respiratory: no symptoms reported Cardiovascular: no symptoms reported Gastrointestinal: abdominal pain (Mild epigastric abdominal pain to palpation), heartburn Musculoskeletal: no symptoms reported Skin: no symptoms reported Neurological: No Symptoms Reported Past Vgyayzi-Qsqujk-Xpnncf Hx Patient Social History Tobacco Use?: No Use of E-Cig and/or Vaping dev: No Substance use?: No Alcohol Use?: No Pt feels they are or have been: No Immunizations Up To Date First/Initial COVID19 Vaccinat: 2020 Second COVID19 Vaccination Venu: 2020 Third COVID19 Vaccination Date: 2020 Seasonal Allergies Seasonal Allergies: No Past Medical History Surgery/Hospitalization HX: Chronic Back Pain; Anxiety; GERD; Asthma; Depression; Asthma. Back surgery x3; left foot surgery Surgeries: Yes (WISDOM TEETH, BACK SURGERY X 3, LEFT FOOT, 1 VAG ) Respiratory: Yes Asthma Cardiac: No Neurological: No Genitourinary: No Gastrointestinal: No Musculoskeletal: No Endocrine: No HEENT: No Cancer: No Psychosocial: Yes Anxiety Integumentary: No Physical Exam Vital Signs Vital Signs - First Documented 02/13/22 16:02 Temp 35.8 Pulse 87 Resp 14 B/P (MAP) 156/116 (129) Pulse Ox 98 O2 Delivery Room Air Height, Weight, BMI Height: 5'4.00" Weight: 220lbs. oz. 99.500059be; 35.00 BMI Method:Stated General Appearance: WD/WN, no apparent distress Eyes: bilateral eye PERRL, bilateral eye EOMI Mouth/Throat: pharynx normal, dental tenderness (Widespread dental decay and some missing teeth. Exposed cavity at the root on right upper teeth where she has tenderness. Mild gum swelling.) Neck: non-tender, full range of motion, supple, normal inspection Cardiovascular: normal peripheral pulses, regular rate, rhythm Respiratory: chest non-tender, lungs clear, normal breath sounds Gastrointestinal: normal bowel sounds, soft, no pulsatile mass; No distended, No guarding, No rebound; tenderness (Mild tenderness to the epigastric area) Neurologic/Psychiatric: alert, oriented x 3 Skin: normal color, warm/dry Progress/Results/Core Measures Results/Orders My Orders Orders - HUAN MARQUES MD Pantoprazole Tablet (Protonix Tablet) (02/13/22 16:30) Vital Signs/I&O 02/13/22 02/13/22 16:02 16:45 Temp 35.8 35.8 Pulse 87 87 Resp 14 14 B/P (MAP) 156/116 (129) 156/116 Pulse Ox 98 98 O2 Delivery Room Air Room Air Blood Pressure Mean: 129 Progress Progress Note : Progress Note Counseled patient to continue on the clindamycin. Will prescribe omeprazole to help with the gastritis. Prescribe a few hydrocodone for severe pain until she can follow-up. Given information for provider that is prescribing her bu prenorphine Departure Impression Primary Impression: Pain due to dental caries Additional Impression: Gastritis Qualified Codes: K29.00 - Acute gastritis without bleeding Disposition: HOME, SELF-CARE Condition: Stable Departure-Patient Inst. Decision time for Depature: 16:31 Referrals: JARET MAYNARD DO (PCP/Family) Primary Care Physician DENG REBOLLEDO MD [facility] [place] Patient Instructions: Tooth Decay ED, Dental Pain ED Add. Discharge Instructions: Continue on antibiotics for dental pain and infection. Take the Omeprazole to help with stomach irritation from the medicines. Try the Hydrocodone/Acetaminophen to help with more severe pain. You could try calling Dr. Deng Rebolledo from the [facility] clinic to see about establishing care for Buprenorphine. Her number is [phone]. Clinic is located at [address] [place] [address] in [place], [place]. All discharge instructions reviewed with patient and/or family. Voiced understanding. Scripts Omeprazole (Omeprazole) 20 Mg Capsule.dr 20 MG PO DAILY for gastritis for 30 Days, #30 CAP 0 Refills Prov: HUAN MARQUES MD 02/13/22 Hydrocodone/Acetaminophen (Hydrocodone-Acetamin 5-325 mg) 5 Mg-325 Mg Tablet 1 TAB PO Q6H PRN for PAIN-SEVERE (8-10) for 5 Days, #20 TAB 0 Refills Prov: HUAN MARQUES MD 02/13/22 HUAN MARQUES MD Feb 13, 2022 16:08
[2022-02-13] MEDS ORDERED: PANTOPRAZOLE 40 MG (PROTONIX) TAB PO STA (16:30)
[2022-02-13] MEDS ORDERED: ACHD5005 PO (16:38)
[2022-02-13] MEDS ORDERED: OMEP20CA18 PO (16:41)
[2022-02-13 16:45] VITALS: BP 156/116
== END 2022-02-13 16:46 | disposition home or self-care (01) ==
LOC: EDUNIT# 15:29 → ER FS 15:30
DX: K02.9 Dental caries, unspecified (principal); K29.70 Gastritis, unspecified, without bleeding
CPT/HCPCS: 99283

== ENCOUNTER 2022-06-30 12:23 | Emergency (ER) | payer MEDICARE ==
[~2022-06-30 12:23] MED LIST changes: +ALBU6.7H13 INH; -ALBU6.7H8 INH; +OMEP20CA18 PO
[2022-06-30] MEDS ORDERED: CLIN-144 PO ×2 (12:44→12:50)
[2022-06-30] MEDS ORDERED: ACHD5005 PO ×2 (12:44→12:50)
--- NOTE | 2022-06-30 12:45 | ED EENT ---
History of Present Illness General Chief Complaint: Dental Problems/Pain Stated Complaint: DENTAL PAIN Nursing Triage Note: Patient presents to the ED with c/o dental pain. Reports dental caries to right upper side. States pain began this morning. Took Tylenol. Rates pain at 9 on scale 0-10. Source: patient Exam Limitations: no limitations History of Present Illness Date Seen by Provider: Jun 30, 2022 Time Seen by Provider: 12:26 Initial Comments 36-year-old female presenting for right upper molar pain that started this morning. Took some Tylenol which did not help. Stabbing, constant, worse with touching it, better with rest. Feels similar to the pain she had in January when she never did see a dentist. Denies any true fever or any other concerns. Allergies and Home Medications Allergies Coded Allergies: penicillin G (Verified Allergy, Mild, Rash, 01/18/19) cefaclor (Verified Allergy, Unknown, 01/18/19) Patient Home Medication List Home Medication List Reviewed: Yes Albuterol Sulfate (Proventil Hfa) 6.7 Gm Hfa.aer.ad, 6.7 GM INH Q4H Prescribed by: CINDY HOFFMAN on 05/20/21 1905 Clindamycin HCl (Clindamycin HCl) 300 Mg Capsule, 300 MG PO QID Prescribed by: LAW PRASAD on 02/09/22 1136 Clindamycin HCl (Clindamycin HCl) 300 Mg Capsule, 300 MG PO QID Prescribed by: LAW PRASAD on 06/30/22 1244 Hydrocodone Bit/Acetaminophen (HYDROcodone/APAP 5 MG/325 MG TAB) 1 Tab Tab, 1 TAB PO Q8H PRN for PAIN-SEVERE (8-10) Prescribed by: LAW PRASAD on 06/30/22 1245 Hydrocodone/Acetaminophen (Hydrocodone-Acetamin 5-325 mg) 5 Mg-325 Mg Tablet, 1 TAB PO Q6H PRN for PAIN-SEVERE (8-10) Prescribed by: HUAN MARQUES on 02/13/22 1639 Ibuprofen (Ibuprofen) 600 Mg Tablet, 600 MG PO Q6H PRN for PAIN-MILD Prescribed by: LAW PRASAD on 02/09/22 1138 Omeprazole (Omeprazole) 20 Mg Capsule.dr, 20 MG PO DAILY Prescribed by: HUAN MARQUES on 02/13/22 1641 Prednisone (Prednisone) 20 Mg Tab, 40 MG PO DAILY Prescribed by: CINDY HOFFMAN on 05/20/21 1905 Review of Systems Review of Systems Constitutional: No fever Eyes: No Symptoms Reported Ears: No Symptoms Reported Nose: no symptoms reported Mouth: see HPI Throat: no symptoms reported Respiratory: no symptoms reported Cardiovascular: no symptoms reported Past Pdeigfd-Qrzbrd-Frqifc Hx Patient Social History Pt feels they are or have been: No Immunizations Up To Date First/Initial COVID19 Vaccinat: 2020 Second COVID19 Vaccination Venu: 2020 Third COVID19 Vaccination Date: 2020 Seasonal Allergies Seasonal Allergies: No Past Medical History Surgery/Hospitalization HX: Chronic Back Pain; Anxiety; GERD; Asthma; Depression; Asthma. Back surgery x3; left foot surgery Surgeries: Yes (WISDOM TEETH, BACK SURGERY X 3, LEFT FOOT, 1 VAG ) Respiratory: Yes Asthma Cardiac: No Neurological: No Genitourinary: No Gastrointestinal: No Musculoskeletal: No Endocrine: No HEENT: No Cancer: No Psychosocial: Yes Anxiety Integumentary: No Physical Exam Vital Signs Vital Signs - First Documented 06/30/22 12:31 Temp 35.8 Pulse 99 Resp 16 B/P (MAP) 133/90 (104) Pulse Ox 100 O2 Delivery Room Air Height, Weight, BMI Height: 5'4.00" Weight: 220lbs. oz. 99.971282tj; 35.00 BMI Method:Stated General Appearance: WD/WN, no apparent distress Eyes: bilateral eye normal inspection Nose: normal inspection Mouth/Throat: other (Dental caries with dental tenderness in the right upper molars, no abscess felt, normal voice, no trismus) Neck: non-tender, full range of motion, supple, normal inspection Cardiovascular: regular rate, rhythm, no edema, no murmur Respiratory: chest non-tender, lungs clear, normal breath sounds, no respiratory distress, no accessory muscle use Gastrointestinal: normal bowel sounds, non tender, soft; No distended, No guarding, No rebound Neurologic/Psychiatric: no motor/sensory deficits, alert, normal mood/affect Skin: normal color, warm/dry Progress/Results/Core Measures Results/Orders Vital Signs/I&O 06/30/22 06/30/22 12:31 12:48 Temp 35.8 35.8 Pulse 99 99 Resp 16 16 B/P (MAP) 133/90 (104) 133/90 Pulse Ox 100 100 O2 Delivery Room Air Room Air Blood Pressure Mean: 104 Progress Progress Note : Progress Note 36-year-old female presenting for dental pain. ABCs were intact and vitals were stable on presentation. Physical exam reassuring with no red flags including no obvious abscess, normal voice, uvula is midline. No indications for CT soft tissue neck at this time. Patient given clindamycin given allergies to penicillin. Wrote her for 1 days worth of hydrocodone to get her through to get her to the dentist tomorrow. I believe she is otherwise stable for discharge with outpatient follow-up. She was sent home with strict return precautions. Departure Impression Primary Impression: Pain, dental Disposition: HOME, SELF-CARE Condition: Stable Departure-Patient Inst. Decision time for Depature: 13:00 Referrals: NO,LOCAL PHYSICIAN (PCP) Primary Care Physician Patient Instructions: Dental Pain Add. Discharge Instructions: You will be on antibiotics for the next week. Please follow-up with a dentist as soon as possible as this will actually fix the issue. Take ibuprofen and [id number] Pepcid with your pain. Scripts Hydrocodone Bit/Acetaminophen (HYDROcodone/APAP 5 MG/325 MG TAB) 1 Tab Tab 1 TAB PO Q8H PRN for PAIN-SEVERE (8-10) for 1 Day, #3 TAB 0 Refills Prov: LAW PRASAD MD 06/30/22 Clindamycin HCl (Clindamycin HCl) 300 Mg Capsule 300 MG PO QID for 7 Days, #28 CAP Prov: LAW PRASAD MD 06/30/22 Work/School Note: Work Release Form Date Seen in the Emergency Department: Jun 30, 2022 Return to Work: Jul 01, 2022 Restrictions: No Restrictions LAW PRASAD MD Jun 30, 2022 12:45
[2022-06-30 12:48] VITALS: BP 133/90
== END 2022-06-30 12:48 | disposition home or self-care (01) ==
LOC: EDUNIT# 12:23 → ER FS 12:25
DX: K02.9 Dental caries, unspecified (principal); Z88.0 Allergy status to penicillin
CPT/HCPCS: 99282

== ENCOUNTER 2022-11-01 09:25 | Emergency (ER) | payer MEDICARE, OTHER ==
[~2022-11-01] VITALS: Ht 162.6 cm; Wt 88.8 kg
--- NOTE | 2022-11-01 09:48 | ED EENT ---
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 Patient started developing fever and chills last night. Patient states that she has a history of MRSA for this type of lesion, and has come to the ER for an antibiotic prescription. Patient also has referred pain to the right ear. Denies cough, cold, sore throat, nausea and vomiting, chest pain, abdominal pain, diarrhea. Allergies and Home Medications Allergies Coded Allergies: penicillin G (Verified Allergy, Mild, Rash, 01/18/19) cefaclor (Verified Allergy, Unknown, 01/18/19) gabapentin (Verified Allergy, Unknown, 11/01/22) naproxen (Verified Allergy, Unknown, 11/01/22) Patient Home Medication List Home Medication List Reviewed: Yes Albuterol Sulfate (Proventil Hfa) 6.7 Gm Hfa.aer.ad, 6.7 GM INH Q4H Prescribed by: CINDY HOFFMAN on 05/20/21 1905 Clindamycin HCl (Clindamycin HCl) 300 Mg Capsule, 300 MG PO QID Prescribed by: LAW PRASAD on 02/09/22 1136 Clindamycin HCl (Clindamycin HCl) 300 Mg Capsule, 300 MG PO QID Prescribed by: LAW PRASAD on 06/30/22 1250 Hydrocodone Bit/Acetaminophen (HYDROcodone/APAP 5 MG/325 MG TAB) 1 Tab Tab, 1 TAB PO Q8H PRN for PAIN-SEVERE (8-10) Prescribed by: LAW PRASAD on 06/30/22 1251 Hydrocodone/Acetaminophen (Hydrocodone-Acetamin 5-325 mg) 5 Mg-325 Mg Tablet, 1 TAB PO Q6H PRN for PAIN-SEVERE (8-10) Prescribed by: HUAN MARQUES on 02/13/22 1639 Ibuprofen (Ibuprofen) 600 Mg Tablet, 600 MG PO Q6H PRN for PAIN-MILD Prescribed by: LAW PRASAD on 02/09/22 1138 Omeprazole (Omeprazole) 20 Mg Capsule.dr, 20 MG PO DAILY Prescribed by: HUAN MARQUES on 02/13/22 1641 Prednisone (Prednisone) 20 Mg Tab, 40 MG PO DAILY Prescribed by: CINDY HOFFMAN on 05/20/21 1905 Review of Systems Review of Systems Constitutional: no symptoms reported Eyes: No Symptoms Reported Ears: No Symptoms Reported Nose: see HPI, pain, clear discharge Mouth: no symptoms reported Throat: no symptoms reported Respiratory: no symptoms reported Cardiovascular: no symptoms reported Gastrointestinal: no symptoms reported Musculoskeletal: no symptoms reported Skin: no symptoms reported Neurological: No Symptoms Reported Hematologic/Lymphatic: No Symptoms Reported Immunological/Allergic: no symptoms reported Past Frfzxfu-Xmmoqg-Owiogc Hx Patient Social History Tobacco Use?: Yes Substance use?: No Alcohol Use?: No Pt feels they are or have been: No Immunizations Up To Date First/Initial COVID19 Vaccinat: 2020 Second COVID19 Vaccination Venu: 2020 Third COVID19 Vaccination Date: 2020 Seasonal Allergies Seasonal Allergies: No Past Medical History Surgery/Hospitalization HX: Chronic Back Pain; Anxiety; GERD; Asthma; Depression; Asthma. Back surgery x3; left foot surgery, Surgeries: Yes (WISDOM TEETH, BACK SURGERY X 3, LEFT FOOT, 1 VAG ) Respiratory: Yes Asthma Cardiac: No Neurological: No Genitourinary: No Gastrointestinal: No Musculoskeletal: No Endocrine: No HEENT: No Cancer: No Psychosocial: Yes Anxiety Integumentary: No Physical Exam Vital Signs Vital Signs - First Documented 11/01/22 09:44 Temp 36.0 Pulse 116 Resp 18 B/P (MAP) 162/112 (129) Pulse Ox 100 O2 Delivery Room Air Height, Weight, BMI Height: 5'4.00" Weight: 220lbs. oz. 99.174695tm; 35.00 BMI Method:Stated General Appearance: WD/WN, no apparent distress Eyes: bilateral eye normal inspection, bilateral eye PERRL Ears: bilateral ear auricle normal, bilateral ear canal normal, bilateral ear TM normal Nose: other (Right nostril shows an ulcerated wound measuring approximately 0.25 mm at the superior-lateral side of the interior of the right nostril. No e xternal lesion present. No active drainage seen although sore is wet.) Mouth/Throat: normal mouth inspection, pharynx normal Neck: non-tender, full range of motion, supple, normal inspection Cardiovascular: regular rate, rhythm Respiratory: lungs clear Neurologic/Psychiatric: alert, normal mood/affect, oriented x 3 Skin: normal color Progress/Results/Core Measures Results/Orders Vital Signs/I&O 11/01/22 09:44 Temp 36.0 Pulse 116 Resp 18 B/P (MAP) 162/112 (129) Pulse Ox 100 O2 Delivery Room Air Progress Progress Note : Progress Note 1. ULCER RIGHT NOSTRIL: - Culture of lesion sent to lab -Prescription given for Bactrim DS twice daily for 10 days, to ensure coverage of MRSA -Follow-up with ENT and/or PCP within 7 days for reassessment -The patient was seen in the ED, and treated appropriately to presentation at a specific point in time. Patient is informed that there is a possibility that disease and illness can evolve and change in acuity rapidly or slowly after patient is discharged from the ER. Precautionary advice given to the patient for immediate return to ER if symptoms worsen or do not resolve, and to seek emergency care sooner rather than later. Pt also advised on the importance of PCP follow up and compliance with management and follow up plan with PCP and/or specialist, as this is part of the management plan. Pt verbally expressed understanding. Departure Impression Primary Impression: Nostril sore Disposition: 01 HOME, SELF-CARE Condition: Stable Departure-Patient Inst. Referrals: MAINOR MAK APRN (PCP) Primary Care Physician MARÍA SANTAMARIA MD (Family) Primary Care Physician Patient Instructions: Rinsing out your nose with salt water Add. Discharge Instructions: -Prescription given for Bactrim DS twice daily for 10 days. Take with food. -Follow-up with ENT and/or PCP within 7 days for reassessment All discharge instructions reviewed with patient and/or family. Voiced understanding. Scripts Sulfamethoxazole/Trimethoprim (Bactrim Ds Tablet) 1 Each Tablet 1 EACH PO BID for 10 Days, #20 TAB Prov: ANTONELLA DE LA O MD 11/01/22 ANTONELLA DE LA O MD Nov 01, 2022 09:48
[2022-11-01 10:00] VITALS: BP 156/100
[2022-11-01] MEDS ORDERED: SULF1TAB38 PO (10:00)
== END 2022-11-01 10:03 | disposition home or self-care (01) ==
LOC: EDUNIT# 09:25 → ER FS 09:28
DX: J34.0 Abscess, furuncle and carbuncle of nose (principal); Z88.0 Allergy status to penicillin; Z88.2 Allergy status to sulfonamides
CPT/HCPCS: 87070; 87077; 87186; 87205; 99282

== ENCOUNTER 2023-01-05 20:23 | Emergency (ER) | payer MEDICARE ==
[~2023-01-05] VITALS: Ht 162.5 cm; Wt 86.1 kg
[~2023-01-05 20:23] MED LIST changes: +SULF1TAB38 PO
[2023-01-05 20:24] VITALS: BP 135/85
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
[2023-01-05] MEDS ORDERED: ACHD5005 PO (20:43)
[2023-01-05] MEDS ORDERED: METHYLPREDNISOLONE ACETATE 40 MG/ML IM STA (20:45)
[2023-01-05] MEDS ORDERED: dexAMETHasone INJ 10 MG/ML 1 ML VIAL IM STA (20:45)
--- NOTE | 2023-01-05 20:55 | Diagnostic Imaging Report ---
EXAM: HIP 2-3 VIEW LEFT INDICATION: Left hip pain. COMPARISON: None. FINDINGS: No fracture or malalignment. Postoperative changes in lower lumbar spine. Soft tissue shadows are unremarkable. IMPRESSION: No acute radiographic findings in the left hip. Dictated by: Dictated on workstation # [id number]
--- NOTE | 2023-01-05 20:58 | Diagnostic Imaging Report ---
EXAM: KNEE 3 VIEW BILATERAL INDICATION: Bilateral knee pain. COMPARISON: None. FINDINGS: No fracture or malalignment. Mild to moderate degenerative changes in the medial compartment of the right knee. Soft tissue shadows are unremarkable. IMPRESSION: 1. No acute radiographic findings in the bilateral knees. 2. Mild to moderate degenerative changes in the medial compartment of the right knee. Dictated by: Dictated on workstation # [id number]
== END 2023-01-05 20:53 | disposition home or self-care (01) ==
LOC: EDUNIT# 20:23 → ER FS 20:25
DX: M25.461 Effusion, right knee (principal); M25.562 Pain in left knee; M25.561 Pain in right knee; M25.552 Pain in left hip; F17.290 Nicotine dependence, other tobacco product, uncomplicated; Z88.6 Allergy status to analgesic agent; Z87.39 Personal history of other diseases of the musculoskeletal system and connective tissue
CPT/HCPCS: 73502; 73562; 99283; L1830

== ENCOUNTER 2023-01-18 14:27 | Emergency (ER) | payer MEDICARE ==
[~2023-01-18] VITALS: Ht 162 cm; Wt 84.0 kg
[2023-01-18 14:51] VITALS: BP 146/80
[2023-01-18] MEDS ORDERED: fentaNYL INJECTION 100 MCG/2 ML VIAL IM STA (14:56)
[2023-01-18] MEDS ORDERED: dexAMETHasone INJ 10 MG/ML 1 ML VIAL IM STA (14:56)
[2023-01-18] MEDS ORDERED: PRD20T PO (14:59)
[2023-01-18] MEDS ORDERED: ACHD5005 PO (14:59)
--- NOTE | 2023-01-18 15:01 | ED Lower Extremity ---
General Chief Complaint: Lower Extremity Stated Complaint: WOLFGANG LEG PAIN/REDNESS Nursing Triage Note: Patient has presented to ER with cc of ongoing bilateral knee pain. Patient has been uable to get to see her orthopedic doctor. She states that her knees just continue to hurt and she has returned to the ER for evaluation. Source: patient History of Present Illness Date Seen by Provider: Jan 18, 2023 Time Seen by Provider: 14:32 Initial Comments 37-year-old female presenting with ongoing bilateral knee pain worse on the right. She was seen by me on 05 January for the same complaint. She has not followed up with anyone since then. She felt like the pain and swelling was getting worse. She denies any acute injury or trauma. She states that she has a history of rheumatoid arthritis and feels like that is flared up. She felt that the pain was worsening and not improving so she came back to the emergency department. She had been advised that she would need to follow-up with orthopedics and/or get an MRI which are things that are not available through the emergency department but came back here requesting pain medicine. Onset: other (More than 2 weeks) Severity: severe Pain/Injury Location: bilateral knee Method of Injury: unknown Modifying Factors: Worse With Movement Allergies and Home Medications Allergies Coded Allergies: penicillin G (Verified Allergy, Mild, Rash, 01/18/19) cefaclor (Verified Allergy, Unknown, 01/18/19) gabapentin (Verified Allergy, Unknown, 11/01/22) naproxen (Verified Allergy, Unknown, 11/01/22) Patient Home Medication List Home Medication List Reviewed: Yes Albuterol Sulfate (Proventil Hfa) 6.7 Gm Hfa.aer.ad, 6.7 GM INH Q4H Prescribed by: CINDY HOFFMAN on 05/20/21 1905 Clindamycin HCl (Clindamycin HCl) 300 Mg Capsule, 300 MG PO QID Prescribed by: LAW PRASAD on 02/09/22 1136 Clindamycin HCl (Clindamycin HCl) 300 Mg Capsule, 300 MG PO QID Prescribed by: LAW PRASAD on 06/30/22 1250 Hydrocodone Bit/Acetaminophen (HYDROcodone/APAP 5 MG/325 MG TAB) 1 Tab Tab, 1 TAB PO Q8H PRN for PAIN-SEVERE (8-10) Prescribed by: LAW PRASAD on 06/30/22 1251 Hydrocodone/Acetaminophen (Hydrocodone-Acetamin 5-325 mg) 5 Mg-325 Mg Tablet, 1 TAB PO Q6H PRN for PAIN-SEVERE (8-10) Prescribed by: HUAN MARQUES on 02/13/22 1639 Hydrocodone/Acetaminophen (Hydrocodone-Acetamin 5-325 mg) 5 Mg-325 Mg Tablet, 1 TAB PO Q6H PRN for PAIN SEVERE Prescribed by: HUAN MARQUES on 01/05/23 2044 Hydrocodone/Acetaminophen (Hydrocodone-Acetamin 5-325 mg) 5 Mg-325 Mg Tablet, 1 TAB PO Q8H PRN for PAIN SEVERE Prescribed by: HUAN MARQUES on 01/18/23 1500 Ibuprofen (Ibuprofen) 600 Mg Tablet, 600 MG PO Q6H PRN for PAIN-MILD Prescribed by: LAW PRASAD on 02/09/22 1138 Omeprazole (Omeprazole) 20 Mg Capsule.dr, 20 MG PO DAILY Prescribed by: HUAN MARUQES on 02/13/22 1641 Prednisone (Prednisone) 20 Mg Tab, 40 MG PO DAILY Prescribed by: CINDY HOFFMAN on 05/20/21 1905 Prednisone (Prednisone) 20 Mg Tab, 20 MG PO UD Prescribed by: HUAN MARQUES on 01/18/23 1459 Sulfamethoxazole/Trimethoprim (Bactrim Ds Tablet) 1 Each Tablet, 1 EACH PO BID Prescribed by: ANTONELLA DE LA O MD on 11/01/22 1000 Review of Systems Constitutional: No chills, No fever EENTM: no symptoms reported Respiratory: no symptoms reported Cardiovascular: no symptoms reported Gastrointestinal: no symptoms reported Genitourinary: no symptoms reported Musculoskeletal: see HPI Skin: No change in color Psychiatric/Neurological: Denies Numbness, Denies Paresthesia Past Vlnqdrl-Kwzawc-Xlhiyr Hx Patient Social History Tobacco Use?: Yes Tobacco type used: Cigarettes Use of E-Cig and/or Vaping dev: No Substance use?: No Alcohol Use?: No Immunizations Up To Date First/Initial COVID19 Vaccinat: 2020 Second COVID19 Vaccination Venu: 2020 Third COVID19 Vaccination Date: 2020 Seasonal Allergies Seasonal Allergies: No Past Medical History Surgery/Hospitalization HX: Chronic Back Pain; Anxiety; GERD; Asthma; Depression; Asthma. Back surgery x3; left foot surgery, Surgeries: Yes (WISDOM TEETH, BACK SURGERY X 3, LEFT FOOT, 1 VAG ) Respiratory: Yes Asthma Cardiac: No Neurological: No Genitourinary: No Gastrointestinal: No Musculoskeletal: No Endocrine: No HEENT: No Cancer: No Psychosocial: Yes Anxiety Integumentary: No Physical Exam Vital Signs Vital Signs - First Documented 01/18/23 14:51 Temp 35.6 Pulse 97 Resp 18 B/P (MAP) 146/80 (102) Pulse Ox 100 O2 Delivery Room Air Capillary Refill : Height, Weight, BMI Height: 5'4.00" Weight: 220lbs. oz. 99.820555tf; 32.00 BMI Method:Stated General Appearance: no apparent distress Cardiovascular: normal peripheral pulses Knees: bilateral knee pain, bilateral knee soft tissue tenderness, bilateral knee swelling (Right greater than left) Neurologic/Tendon: normal sensation, normal motor functions Neurologic/Psychiatric: alert, oriented x 3 Skin: normal color, warm/dry Progress/Results/Core Measures Results/Orders My Orders Orders - HUAN MARQUES MD Dexamethasone Injection (Dexamethasone (01/18/23 14:56) Fentanyl Injection (Fentanyl Injection (01/18/23 14:56) Vital Signs/I&O 01/18/23 14:51 Temp 35.6 Pulse 97 Resp 18 B/P (MAP) 146/80 (102) Pulse Ox 100 O2 Delivery Room Air Blood Pressure Mean: 102 Progress Progress Note : Progress Note Reviewed with patient that I did not have orthopedics or MRI capability from the emergency department. She would have to follow-up with the clinic for these things. I can try doing a little more of a steroid be on the steroid shots that she got when she was here 2 weeks ago. Encourage rest and hydration. Check back with the clinic for continued evaluation and treatment. Departure Impression Primary Impression: Bilateral knee pain Qualified Codes: M25.561 - Pain in right knee; M25.562 - Pain in left knee Additional Impression: Bilateral knee swelling Disposition: 01 HOME, SELF-CARE Condition: Stable Departure-Patient Inst. Decision time for Depature: 14:57 Referrals: MAINOR MAK APRN (PCP) Primary Care Physician MARÍA SANTAMARIA MD (Family) Primary Care Physician LIBORIO WILKINSON JUSTIN S MD Patient Instructions: Opioids for Short-Term Treatment of Pain ED, Knee Pain ED, Swollen Joints (DC) Add. Discharge Instructions: Try to rest your legs and limit walking and putting more stress on your knees. Take the steroid taper to see if it would help calm things down. Follow-up with the clinic and/or orthopedics as you may need to get an MRI to look at the soft tissues of the knees or have orthopedics try and drain some fluid from the joint to look for further injury. All discharge instructions reviewed with patient and/or family. Voiced understanding. Scripts Hydrocodone/Acetaminophen (Hydrocodone-Acetamin 5-325 mg) 5 Mg-325 Mg Tablet 1 TAB PO Q8H PRN for PAIN SEVERE for 3 Days, #9 TAB 0 Refills Prov: HUAN MARQUES MD 01/18/23 Prednisone (Prednisone) 20 Mg Tab 20 MG PO UD, #22 TAB 0 Refills Take 3 tabs(60mg)daily,decrease by 1/2 tab(10mg)every other day. Prov: HUAN MARQUES MD 01/18/23 HUAN MARQUES MD Jan 18, 2023 15:01
== END 2023-01-18 15:06 | disposition home or self-care (01) ==
LOC: EDUNIT# 14:27 → ER FS 14:28
DX: M25.561 Pain in right knee (principal); M25.562 Pain in left knee; M79.89 Other specified soft tissue disorders; F17.210 Nicotine dependence, cigarettes, uncomplicated; Z88.6 Allergy status to analgesic agent
CPT/HCPCS: 99284

== ENCOUNTER 2023-03-04 11:14 | Emergency (ER) | payer MEDICARE ==
[~2023-03-04] VITALS: Ht 162 cm; Wt 82.0 kg
[2023-03-04 11:23] VITALS: BP 122/89
[2023-03-04 11:52] LABS: BILIRUBIN,URINE NEGATIVE (NEGATIVE); CLARITY,URINE CLEAR; COLOR,URINE YELLOW; GLUCOSE, URINE (UA) NEGATIVE (NEGATIVE); KETONES,URINE NEGATIVE (NEGATIVE); LEUKOCYTE ESTERASE ,URINE NEGATIVE (NEGATIVE); NITRITE,URINE NEGATIVE (NEGATIVE); PROTEIN,URINE NEGATIVE (NEGATIVE)
[2023-03-04 12:03] LABS: BACTERIA,URINE NEGATIVE /HPF; WBC,URINE RARE /HPF
--- NOTE | 2023-03-04 12:06 | ED Back Pain ---
General Chief Complaint: Back Problems Stated Complaint: SUPRAPUBIC/BACK PAIN Nursing Triage Note: Patient has presented to ER with cc of left lower back and left hip pain. Patient is very hard to asess - she is sluring her words at times. She has numerous things that she complains about but when asked about specifics she cannot seem to give details. She has states that she has cyst on her left hip that is draing into "her insides", states it is red and swollen. She has stated that her lower back is swollen, she reports lower abd pain and she states her lower abd is swollen. She reports her symptoms for the last week and she has not been able to see her doctor because she has to take care of her mother. Source of Information: Patient, RN Notes Reviewed History of Present Illness Date Seen by Provider: Mar 04, 2023 Time Seen by Provider: 11:35 Initial Comments 37-year-old female patient with history of asthma, anxiety, chronic back pain presented POV with with her mother as a patient too, with complaining of abdominal and back pain. Patient stated her ovarian cyst popped out about 1 week ago and she feels pain in left side of her abdomen and left back and she has some vaginal discharge that resolved now. Patient stated her ovarian cyst popped up frequently and she has the same problem previously but her pain did not get better with Tylenol and ibuprofen and her mother needed to be seen in ER and she decided to come to emergency room to be checked also. Patient is a poor historian and cannot explain her multiple complaint. Patient looks like under influence of drugs. Timing/Duration: 1 Week Pain/Injury Location: Abdomen, Back Allergies and Home Medications Allergies Coded Allergies: penicillin G (Verified Allergy, Mild, Rash, 01/18/19) cefaclor (Verified Allergy, Unknown, 01/18/19) gabapentin (Verified Allergy, Unknown, 11/01/22) naproxen (Verified Allergy, Unknown, 11/01/22) Patient Home Medication List Home Medication List Reviewed: Yes Albuterol Sulfate (Proventil Hfa) 6.7 Gm Hfa.aer.ad, 6.7 GM INH Q4H Prescribed by: CINDY HOFFMAN on 05/20/21 1905 Clindamycin HCl (Clindamycin HCl) 300 Mg Capsule, 300 MG PO QID Prescribed by: LAW PRASAD on 02/09/22 1136 Clindamycin HCl (Clindamycin HCl) 300 Mg Capsule, 300 MG PO QID Prescribed by: LAW PRASAD on 06/30/22 1250 Cyclobenzaprine HCl (Cyclobenzaprine HCl) 10 Mg Tablet, 10 MG PO Q8H PRN for SPASMS Prescribed by: Yadira quiroz on 03/04/23 1212 Hydrocodone Bit/Acetaminophen (HYDROcodone/APAP 5 MG/325 MG TAB) 1 Tab Tab, 1 TAB PO Q8H PRN for PAIN-SEVERE (8-10) Prescribed by: LAW PRASAD on 06/30/22 1251 Hydrocodone/Acetaminophen (Hydrocodone-Acetamin 5-325 mg) 5 Mg-325 Mg Tablet, 1 TAB PO Q6H PRN for PAIN-SEVERE (8-10) Prescribed by: HUAN MARQUES on 02/13/22 1639 Hydrocodone/Acetaminophen (Hydrocodone-Acetamin 5-325 mg) 5 Mg-325 Mg Tablet, 1 TAB PO Q6H PRN for PAIN SEVERE Prescribed by: HUAN MARQUES on 01/05/23 2044 Hydrocodone/Acetaminophen (Hydrocodone-Acetamin 5-325 mg) 5 Mg-325 Mg Tablet, 1 TAB PO Q8H PRN for PAIN SEVERE Prescribed by: HUAN MARQUSE on 01/18/23 1500 Ibuprofen (Ibuprofen) 600 Mg Tablet, 600 MG PO Q6H PRN for PAIN-MILD Prescribed by: LAW PRASAD on 02/09/22 1138 Ketorolac Tromethamine (Ketorolac Tromethamine) 10 Mg Tablet, 10 MG PO BID Prescribed by: Yadira quiroz on 03/04/23 1212 Omeprazole (Omeprazole) 20 Mg Capsule.dr, 20 MG PO DAILY Prescribed by: HUAN MARQUES on 02/13/22 1641 Prednisone (Prednisone) 20 Mg Tab, 40 MG PO DAILY Prescribed by: CINDY HOFFMAN on 05/20/21 1905 Prednisone (Prednisone) 20 Mg Tab, 20 MG PO UD Prescribed by: HUAN MARQUES on 01/18/23 1459 Sulfamethoxazole/Trimethoprim (Bactrim Ds Tablet) 1 Each Tablet, 1 EACH PO BID Prescribed by: ANTONELLA DE LA O MD on 11/01/22 1000 Review of Systems Constitutional: see HPI EENTM: no symptoms reported Respiratory: no symptoms reported Cardiovascular: no symptoms reported Gastrointestinal: see HPI Genitourinary: see HPI Musculoskeletal: see HPI Skin: no symptoms reported Psychiatric/Neurological: See HPI All Other Systems Reviewed Negative Unless Noted: Yes Past [id number]-Kqaxks-Wwrtop Hx Patient Social History Tobacco Use?: Yes Tobacco type used: Cigarettes Use of E-Cig and/or Vaping dev: No Substance use?: No Alcohol Use?: No Immunizations Up To Date First/Initial COVID19 Vaccinat: 2020 Second COVID19 Vaccination Venu: 2020 Third COVID19 Vaccination Date: 2020 Seasonal Allergies Seasonal Allergies: No Past Medical History Surgery/Hospitalization HX: Chronic Back Pain; Anxiety; GERD; Asthma; Depression; Asthma. Back surgery x3; left foot surgery, Surgeries: Yes (WISDOM TEETH, BACK SURGERY X 3, LEFT FOOT, 1 VAG ) Respiratory: Yes Asthma Cardiac: No Neurological: No Genitourinary: No Gastrointestinal: No Musculoskeletal: No Endocrine: No HEENT: No Cancer: No Psychosocial: Yes Anxiety Integumentary: No Physical Exam Vital Signs Vital Signs - First Documented 03/04/23 11:23 Temp 36.8 Pulse 88 Resp 16 B/P (MAP) 122/89 (100) Pulse Ox 100 O2 Delivery Room Air Capillary Refill : Height, Weight, BMI Height: 5'4.00" Weight: 220lbs. oz. [id number]; 31.00 BMI Method:Stated General Appearance: No Apparent Distress, Anxious, Obese HEENT: PERRL/EOMI Neck: Full Range of Motion, Normal Inspection Cardiovascular: Regular Rate, Rhythm, No Edema Respiratory: Chest Non Tender, Lungs Clear, Normal Breath Sounds, No Accessory Muscle Use Gastrointestinal: Normal Bowel Sounds, No Organomegaly, No Pulsatile Mass Back: Normal Inspection, No CVA Tenderness, No Vertebral Tenderness Extremity: Normal Capillary Refill, Normal Inspection Neurologic/Psychiatric: Alert, No Motor/Sensory Deficits Skin: Normal Color, Warm/Dry Progress/Results/Core Measures Results/Orders Lab Results Laboratory Tests Test 03/04/23 11:43 Range/Units Urine Color YELLOW Urine Clarity CLEAR Urine pH 6.0 5-9 Urine Specific [place] 1.010 L 1.016-1.022 Urine Protein NEGATIVE NEGATIVE Urine Glucose (UA) NEGATIVE NEGATIVE Urine Ketones NEGATIVE NEGATIVE Urine Nitrite NEGATIVE NEGATIVE Urine Bilirubin NEGATIVE NEGATIVE Urine Urobilinogen 0.2 < = 1.0 MG/DL Urine Leukocyte Esterase NEGATIVE NEGATIVE Urine RBC (Auto) NEGATIVE NEGATIVE Urine RBC NONE /HPF Urine WBC RARE /HPF Urine Squamous Epithelial Cells 2-5 /HPF Urine Crystals NONE /LPF Urine Bacteria NEGATIVE /HPF Urine Casts NONE /LPF Urine Mucus NEGATIVE /LPF Urine Culture Indicated NO Urine Opiates Screen NEGATIVE NEGATIVE Urine Oxycodone Screen NEGATIVE NEGATIVE Urine Methadone Screen NEGATIVE NEGATIVE Urine Propoxyphene Screen NEGATIVE NEGATIVE Urine Barbiturates Screen NEGATIVE NEGATIVE Ur Tricyclic Antidepressants Screen NEGATIVE NEGATIVE Urine Phencyclidine Screen NEGATIVE NEGATIVE Urine Amphetamines Screen POSITIVE H NEGATIVE Urine Methamphetamines Screen POSITIVE H NEGATIVE Urine Benzodiazepines Screen NEGATIVE NEGATIVE Urine Cocaine Screen NEGATIVE NEGATIVE Urine Cannabinoids Screen NEGATIVE NEGATIVE My Orders Orders - YADIRA QUIROZ MD Ua Culture If Indicated (03/04/23 11:42) Drug Screen Stat (Urine) (03/04/23 11:42) Vital Signs/I&O 03/04/23 11:23 Temp 36.8 Pulse 88 Resp 16 B/P (MAP) 122/89 (100) Pulse Ox 100 O2 Delivery Room Air Blood Pressure Mean: 100 Progress Progress Note : Progress Note Differential diagnosis: Substance abuse, UTI, chronic back pain Patient with complaint of several problem for 1 week with unremarkable vital signs and physical exam except for anxiety and acting like under influence of substance. UA, UDS was ordered and reviewed by me UA did not show acute finding. UDS was positive for amphetamine and methamphetamine and patient denies several times using any drugs. Prescription for Flexeril and Toradol for chronic back was given. Patient advised to not use drugs and follow-up with primary care physician for chronic pain. Departure Impression Primary Impression: Lumbar back pain Additional Impression: Methamphetamine abuse Disposition: 01 HOME, SELF-CARE Condition: Stable Departure-Patient Inst. Decision time for Depature: 12:09 Referrals: MAINOR MAK APRN (PCP) Primary Care Physician MARÍA SANTAMARIA MD (Family) Primary Care Physician Patient Instructions: Low Back Pain (DC), Low back pain in adults, Methamphetamine Add. Discharge Instructions: Apply ice on your back Follow-up with your primary care physician in 3 to 5 days Return to ER as needed All discharge instructions reviewed with patient and/or family. Voiced understanding. Scripts Cyclobenzaprine HCl (Cyclobenzaprine HCl) 10 Mg Tablet 10 MG PO Q8H PRN for SPASMS, #15 TAB 0 Refills Prov: YADIRA QUIROZ MD 03/04/23 Ketorolac Tromethamine (Ketorolac Tromethamine) 10 Mg Tablet 10 MG PO BID, #10 TAB Prov: YADIRA QUIROZ MD 03/04/23 YADIRA QUIROZ MD Mar 04, 2023 12:06
[2023-03-04 12:09] LABS: AMPHETAMINE SCREEN, URINE POSITIVE (NEGATIVE); BARBITURATE SCREEN URINE NEGATIVE (NEGATIVE); CANNABINOID SCREEN, URINE NEGATIVE (NEGATIVE); COCAINE SCREEN URINE NEGATIVE (NEGATIVE); METHADONE STAT NEGATIVE (NEGATIVE); OPIATE SCREEN URINE NEGATIVE (NEGATIVE); OXYCODONE STAT NEGATIVE (NEGATIVE); PROPOXYPHENE STAT NEGATIVE (NEGATIVE); TRICYCLIC ANTIDEPRESSANTS SCRE NEGATIVE (NEGATIVE)
[2023-03-04] MEDS ORDERED: KETO10TA PO (12:12)
[2023-03-04] MEDS ORDERED: CYCL10TA25 PO (12:12)
== END 2023-03-04 12:18 | disposition home or self-care (01) ==
LOC: EDUNIT# 11:14 → ER FS 11:16
DX: M54.50 Low back pain, unspecified (principal); F15.10 Other stimulant abuse, uncomplicated; E66.9 Obesity, unspecified; F17.210 Nicotine dependence, cigarettes, uncomplicated; Z68.31 Body mass index [BMI] 31.0-31.9, adult
CPT/HCPCS: 80306; 81000; 99282